=== PATIENT | male | born 1990 | race American Indian/Alaskan Native ===

== ENCOUNTER 2018-04-02 20:36 | Inpatient (IN) | payer SELFPAY ==
[2018-04-02] MEDS ORDERED: NACL 0.9% 1000 ML 1,000 ML IV ONE (21:57)
[2018-04-02 22:37] LABS: Hematocrit 40.4 % (35.5-45.6); Hemoglobin 13.8 gm/dl (11.8-15.2); Mean Corpuscular HGB Conc 34 % (32-34); Mean Corpuscular Hemoglobin 30 pg (28-32); Mean Corpuscular Volume 86 fl (84-94); Platelet Count 410 K/mm3 (140-440); Red Blood Count 4.68 M/mm3 (3.65-5.03); Red Cell Distribution Width 12.5 % (13.2-15.2)
[2018-04-02 22:54] LABS: Alanine Aminotransferase 9 units/L (7-56); Albumin 3.4 g/dL (3.9-5); BUN/Creatinine Ratio 4; Blood Urea Nitrogen 4 mg/dL (9-20); Calcium 9.1 mg/dL (8.4-10.2); Hemolysis Index 4
[2018-04-02 23:13] LABS: Basophils % (Manual) 0 % (0.0-1.8); Monocytes % (Manual) 0 % (0.0-7.3); RBC Morphology Normal; Total Cells Counted 100
[2018-04-02 23:14] LABS: Large Platelets 1+; Platelet Estimate Consistent w Auto
[2018-04-03] MEDS ORDERED: MOTRIN ONE ×2 (00:45→00:46)
[2018-04-03] MEDS ORDERED: ZOFRAN ODT PO ONE (00:46)
[2018-04-03] MEDS ORDERED: MOTRIN PO ONE (00:46)
[2018-04-03] MEDS ORDERED: SUBLIMAZE IV ONE (06:46)
[2018-04-03] MEDS ORDERED: NACL 0.9% 1000 ML 1,000 ML IV ONE (06:46)
[2018-04-03] MEDS ORDERED: ZOFRAN IV ONE (06:46)
--- NOTE | 2018-04-03 06:52 | Emergency Department Report ---
HPI - General Chief Complaint: Abdominal Pain Time Seen by Provider: 04/03/18 06:36 - HPI HPI: Room 24 The patient is a 28-year-old male presenting with a chief complaint of abdominal pain. The patient was discharged from hospital yesterday after admission for abdominal pain. The patient states he was discharged yesterday at approximately 14:00. The patient states he went home and ate a banana, one half couple fruit cocktail drink some water and took his antibiotic and then went to sleep. The patient states at approximately 19:30 he was awakened by diffuse sharp cramping abdominal pain that is constant in nature but waxes and wanes. Patient admits to nausea vomiting and subjective fever. The patient gives his pain score of 8/10 Location: Abdomen Duration: [See above] Quality: Sharp/cramping Severity: 8/10 Modifying factors: [see above] Context: [see above] Mode of transportation: [not driving] ED Past Medical Hx - Past Medical History Hx Asthma: Yes - Surgical History Additional Surgical History: Achilles Lt injury - Family History Family history: no significant - Social History Smoking Status: Never Smoker Substance Use Type: None (denies illicit drug use), Alcohol (occasional) - Medications Home Medications: Home Medications Medication Instructions Recorded Confirmed Last Taken Type Bacillus Coagulans [Probiotic] 1 each PO DAILY #30 tab.chew 04/02/18 Unknown Rx levoFLOXacin [Levaquin] 750 mg PO QDAY #10 tablet 04/02/18 Unknown Rx metroNIDAZOLE [Flagyl] 500 mg PO Q8HR #30 tablet 04/02/18 Unknown Rx ED Review of Systems ROS: Stated complaint: ABDOMINAL PAIN Other details as noted in HPI Constitutional: fever Eyes: denies: eye pain ENT: denies: throat pain Respiratory: no symptoms reported Cardiovascular: denies: chest pain Endocrine: no symptoms reported Gastrointestinal: abdominal pain, nausea, vomiting Genitourinary: denies: dysuria Musculoskeletal: denies: back pain Neurological: denies: headache Physical Exam - Physical Exam Vital Signs: Vital Signs 04/02/18 04/03/18 21:48 00:45 Temperature 99.1 F 101.2 F H Pulse Rate 90 102 H Respiratory 17 Rate Blood Pressure 156/69 Blood Pressure 134/60 [Left] O2 Sat by Pulse 100 99 Oximetry Physical Exam: GENERAL: The patient is well-developed well-nourished male lying on stretcher not appear to be in acute distress. [] HEENT: Normocephalic. Atraumatic. Extraocular motions are intact. Patient has moist mucous membranes. NECK: Supple. Trachea midline CHEST/LUNGS: Clear to auscultation. There is no respiratory distress noted. HEART/CARDIOVASCULAR: Regular. There is no tachycardia. There is no gallop rub or murmur. ABDOMEN: Abdomen is soft, but tender diffusely to palpation. Patient has normal bowel sounds. There is no abdominal distention. SKIN: There is no rash. There is no edema. There is no diaphoresis. NEURO: The patient is awake, alert, and oriented. The patient is cooperative. The patient has normal speech MUSCULOSKELETAL: There is no evidence of acute injury. ED Course Vital Signs 04/02/18 04/03/18 21:48 00:45 Temperature 99.1 F 101.2 F H Pulse Rate 90 102 H Respiratory 17 Rate Blood Pressure 156/69 Blood Pressure 134/60 [Left] O2 Sat by Pulse 100 99 Oximetry ED Medical Decision Making - Lab Data Result diagrams: 04/02/18 22:02 04/02/18 22:02 Laboratory Tests 04/02/18 04/02/18 22:02 22:02 WBC 11.4 H RBC 4.68 Hgb 13.8 Hct 40.4 MCV 86 MCH 30 MCHC 34 RDW 12.5 L Plt Count 410 Add Manual Diff Complete Total Counted 100 Seg Neutrophils % [employer] Head Seg Neuts % (Manual) 94.0 H Band Neutrophils % 0 Lymphocytes % (Manual) 5.0 L Reactive Lymphs % (Man) 0 Monocytes % (Manual) 0 Eosinophils % (Manual) 1.0 Basophils % (Manual) 0 Metamyelocytes % 0 Myelocytes % 0 Promyelocytes % 0 Blast Cells % 0 Nucleated RBC % Not Reportable Seg Neutrophils # Man 10.7 H Band Neutrophils # 0.0 Lymphocytes # (Manual) 0.6 L Abs React Lymphs (Man) 0.0 Monocytes # (Manual) 0.0 Eosinophils # (Manual) 0.1 Basophils # (Manual) 0.0 Metamyelocytes # 0.0 Myelocytes # 0.0 Promyelocytes # 0.0 Blast Cells # 0.0 WBC Morphology Not Reportable Hypersegmented Neuts Not Reportable Hyposegmented Neuts Not Reportable Hypogranular Neuts Not Reportable Smudge Cells Not Reportable Toxic Granulation Not Reportable Toxic Vacuolation Not Reportable Dohle Bodies Not Reportable Pelger-Huet Anomaly Not Reportable Wilver Rods Not Reportable Platelet Estimate Consistent w auto Clumped Platelets Not Reportable Plt Clumps, EDTA Not Reportable Large Platelets 1+ Giant Platelets Not Reportable Platelet Satelliting Not Reportable Plt Morphology Comment Not Reportable RBC Morphology Normal Dimorphic RBCs Not Reportable Polychromasia Not Reportable Hypochromasia Not Reportable Poikilocytosis Not Reportable Anisocytosis Not Reportable Microcytosis Not Reportable Macrocytosis Not Reportable Spherocytes Not Reportable Pappenheimer Bodies Not Reportable Sickle Cells Not Reportable Target Cells Not Reportable Tear Drop Cells Not Reportable Ovalocytes Not Reportable Helmet Cells Not Reportable [place] Bodies Not Reportable [place] Rings Not Reportable [place] Cells Not Reportable Bite Cells Not Reportable Crenated Cell Not Reportable Elliptocytes Not Reportable Acanthocytes (Spur) Not Reportable Rouleaux Not Reportable Hemoglobin C Crystals Not Reportable Schistocytes Not Reportable Malaria parasites Not Reportable Karri Bodies Not Reportable Hem Pathologist Commnt No Sodium 136 L Potassium 3.1 L Chloride 94.1 L Carbon Dioxide 23 Anion Gap 22 BUN 4 L Creatinine 0.9 Estimated GFR > 60 BUN/Creatinine Ratio 4 Glucose 124 H Calcium 9.1 Total Bilirubin 0.40 AST 14 ALT 9 Alkaline Phosphatase 59 Total Protein 7.2 Albumin 3.4 L Albumin/Globulin Ratio 0.9 - Differential Diagnosis appendicitis, peritonitis, chronic abdominal pain Critical care attestation.: If time is entered above; I have spent that time in minutes in the direct care of this critically ill patient, excluding procedure time. ED Disposition Clinical Impression: Acute abdominal pain, Leukocytosis Disposition: - OP ADMIT IP TO THIS HOSP Is pt being admited?: Yes Does the pt Need Aspirin: No Condition: Fair Referrals: PRIMARY CARE, [Primary Care Provider] - 3-5 Days Time of Disposition: 08:05 (hospitalist paged)
[2018-04-03] MEDS: KCL 10MEQ/100ML 10 MEQ/100 ML BAG IV SCH ×4 (07:52→11:49)
[2018-04-03] MEDS ORDERED: TYLENOL PO PRN (08:30)
[2018-04-03] MEDS ORDERED: DILAUDID IV PRN (08:30)
[2018-04-03] MEDS ORDERED: ZOFRAN IV PRN (08:30)
[2018-04-03] MEDS ORDERED: SODIUM CHLORIDE FLUSH SYRINGE 10 ML IV PRN (08:30)
--- NOTE | 2018-04-03 08:30 | History and Physical Report ---
History of Present Illness Date of examination: 04/03/18 Date of admission: 04/03/18 Chief complaint: abdominal pain History of present illness: The patient is a 28-year-old male who just discharged yesterday with abx for enteritis and outpt GI f/u presenting with a chief complaint of abdominal pain. The patient states he was discharged yesterday at approximately 14:00, he went home and ate a banana, one half couple fruit cocktail drink some water and took his antibiotic and then went to sleep. The patient states at approximately 19: 30 he was awakened by diffuse sharp cramping abdominal pain that is constant in nature but waxes and wanes. Patient also admits to nausea vomiting and subjective fever. CT abdomen/pelvis with oral contrast showed distended colon w/ o obstruction and diffuse enteritis. He was started on iv fluid, abx and admitted for further evaluation and management. Past History Past Medical History: No medical history Past Surgical History: Other (achilles Lt injury) Social history: smoking (marijuana), alcohol abuse (heavily once per week) Family history: no significant family history (denies family hist ROS: Constitutional: fever Eyes: denies: eye pain ENT: denies: throat pain Respiratory: no symptoms reported Cardiovascular: denies: chest pain Endocrine: no symptoms reported Gastrointestinal: + abdominal pain, nausea, vomiting Genitourinary: denies: dysuria Musculoskeletal: denies: back pain Neurological: denies: headache Medications and Allergies Allergies Allergy/AdvReac Type Severity Reaction Status Date / Time No Known Allergies Allergy Unverified 03/29/18 14:49 Home Medications Medication Instructions Recorded Confirmed Last Taken Type Bacillus Coagulans [Probiotic] 1 each PO DAILY #30 tab.chew 04/02/18 Unknown Rx levoFLOXacin [Levaquin] 750 mg PO QDAY #10 tablet 04/02/18 Unknown Rx metroNIDAZOLE [Flagyl] 500 mg PO Q8HR #30 tablet 04/02/18 Unknown Rx Active Meds: Active Medications Potassium Chloride (Kcl 10meq/100ml) 10 meq in 100 mls @ 100 mls/hr IV Q1H MC Stop: 04/03/18 10:59 Last Admin: 04/03/18 07:52 Dose: 100 mls/hr Exam - Physical Exam Narrative exam: GENERAL: The patient is well-developed well-nourished male lying on stretcher not appear to be in acute distress. [] HEENT: Normocephalic. Atraumatic. Extraocular motions are intact. Patient has moist mucous membranes. NECK: Supple. Trachea midline CHEST/LUNGS: Clear to auscultation. There is no respiratory distress noted. HEART/CARDIOVASCULAR: Regular. There is no tachycardia. There is no gallop rub or murmur. ABDOMEN: Abdomen is soft, but tender diffusely to palpation. Patient has normal bowel sounds. There is no abdominal distention. SKIN: There is no rash. There is no edema. There is no diaphoresis. NEURO: The patient is awake, alert, and oriented. The patient is cooperative. The patient has normal speech MUSCULOSKELETAL: There is no evidence of acute injury. - Constitutional Vitals: Temp Pulse Resp BP Pulse Ox 101.2 F H 102 H 17 134/60 99 04/03/18 00:45 04/03/18 00:45 04/03/18 00:45 04/03/18 00:45 04/03/18 00:45 Results - Labs CBC & Chem 7: 04/02/18 22:02 04/02/18 22:02 Labs: Abnormal lab results 04/02/18 04/02/18 Range/Units 22:02 22:02 WBC 11.4 H (4.5-11.0) K/mm3 RDW 12.5 L (13.2-15.2) % Seg Neuts % (Manual) 94.0 H (40.0-70.0) % Lymphocytes % (Manual) 5.0 L (13.4-35.0) % Seg Neutrophils # Man 10.7 H (1.8-7.7) K/mm3 Lymphocytes # (Manual) 0.6 L (1.2-5.4) K/mm3 Sodium 136 L (137-145) mmol/L Potassium 3.1 L (3.6-5.0) mmol/L Chloride 94.1 L (98-107) mmol/L BUN 4 L (9-20) mg/dL Glucose 124 H (75-100) mg/dL Albumin 3.4 L (3.9-5) g/dL Assessment and Plan Possible paralytic ileus Enteritis- ?IBD, C. def negative in prior admission Abdominal pain and Persistent nausea with vomiting, due to enteritis Sepsis, due to above Hypokalemia, due to GI loss - admit to medsurge, replete electrolytes, IV fluid, keep NPO - cont levaquin and flagyl IV - consulted GI and GS - DVT Px with SCD Radiological study: Although small bowel and colon are distended, oral contrast extends from stomach to rectum suggesting against obstruction. These findings may reflect paralytic ileus and/or enteritis. Given extensive mural thickening in the terminal ileum and cecum, findings are highly suspicious for inflammatory bowel disease Greater ascites than comparison with preponderance in the pelvis. Appendix contains oral contrast without mural thickening Slight prominence of right subareolar soft tissue may reflect mild gynecomastia Small bilateral pleural effusions with adjacent minimal lung base compressive atelectasis Nonspecific slight mural thickening in the sigmoid colon may be reactive from adjacent pelvic inflammatory change and fluid.
[2018-04-03] MEDS: SODIUM CHLORIDE FLUSH SYRINGE 10 ML IV SCH ×2 (10:43→22:43)
[2018-04-03] MEDS ORDERED: LEVAQUIN 750MG/150ML 750 MG/150 ML BAG IV ONE (10:53)
[2018-04-03] MEDS: LEVAQUIN 750MG/150ML 750 MG/150 ML BAG IV SCH (10:57)
--- NOTE | 2018-04-03 14:16 | Cat Scan Report ---
FINAL REPORT EXAM: CT ABDOMEN PELVIS WO CON HISTORY: abdominal pain TECHNIQUE: CT examination of the ABDOMEN without IV contrast CT examination of the PELVIS without IV contrast PRIORS: 03/29/2018 FINDINGS: Nonspecific slight prominence of right subareolar soft tissue may reflect mild gynecomastia. Small bilateral pleural effusions layer posteriorly, slightly larger on the right. Minimal adjacent bilateral lung base compressive atelectasis. Normal noncontrast appearance of the liver, gallbladder, adrenals, pancreas, and spleen. Normal caliber abdominal aorta and IVC. Normal-appearing kidneys and proximal ureters. Distal ureters are obscured by pelvic anatomy. Moderate ascites is slightly more prominent than comparison exam. It is noted in both pericolic gutters and pelvis. Trace is noted adjacent to the liver and spleen. There also suggestion of nonspecific mild anasarca in the abdominal wall and mesentery. No retroperitoneal adenopathy. No evidence of mesenteric mass. Normal-appearing stomach and duodenum. There is nonspecific new small bowel distention in the abdomen and pelvis. These contain air-fluid levels and contrast fluid levels. Findings may reflect paralytic ileus and/or enteritis or inflammatory bowel disease. Complete obstruction considered unlikely since oral contrast extends from the stomach to the rectum. Again noted is extensive mural thickening in the terminal ileum. Moderate to severe mural thickening in the cecum. Scattered slight mural thickening in small bowel. Normal-appearing appendix containing oral contrast. Extensive fat stranding is noted in the mesentery anterior to terminal ileum. Moderate to severe pelvic free fluid may be reactive. Normal-appearing urinary bladder, prostate, seminal vesicles, and rectum. No evidence of pneumoperitoneum. Nonspecific slight mural thickening in the sigmoid colon may be reactive from adjacent inflammatory change and pelvic fluid. Slight prominence of colon caliber in the ascending, transverse, and descending colon may reflect paralytic ileus. IMPRESSION: Although small bowel and colon are distended, oral contrast extends from stomach to rectum suggesting against obstruction. These findings may reflect paralytic ileus and/or enteritis. Given extensive mural thickening in the terminal ileum and cecum, findings are highly suspicious for inflammatory bowel disease Greater ascites than comparison with preponderance in the pelvis. Appendix contains oral contrast without mural thickening Slight prominence of right subareolar soft tissue may reflect mild gynecomastia Small bilateral pleural effusions with adjacent minimal lung base compressive atelectasis Nonspecific slight mural thickening in the sigmoid colon may be reactive from adjacent pelvic inflammatory change and fluid
[2018-04-03] MEDS: FLAGYL 500 MG/100 ML 500 MG/100 ML BAG IV SCH ×2 (17:00→22:43)
[2018-04-03 17:15] LABS: Alanine Aminotransferase 8 units/L (7-56)
[2018-04-03 17:24] LABS: Bilirubin,Direct < 0.2 mg/dL (0-0.2)
[2018-04-03 20:31] LABS: Bacteria,Urine 1+ /HPF (Negative); Bilirubin,Urine NEG (Negative); Blood,Urine NEG (Negative); Color,Urine Yellow (Yellow); Mucus,Urine FEW /HPF; Protein,Urine <15 mg/dL mg/dL (Negative); Urobilinogen,Urine < 2.0 mg/dL (<2.0)
[2018-04-03] MEDS: D5NS 1,000 ML IV SCH (22:43)
[2018-04-04] MEDS: MORPHINE IV PRN ×2 (00:43→21:59)
[2018-04-04] MEDS: FLAGYL 500 MG/100 ML 500 MG/100 ML BAG IV SCH ×3 (06:48→21:57)
[2018-04-04 06:59] LABS: Basophils % (Auto) 0.1 % (0.0-1.8); Eosinophils % (Auto) 0.1 % (0.0-4.3); Hematocrit 36.8 % (35.5-45.6); Hemoglobin 12.6 gm/dl (11.8-15.2); Lymphocytes # (Auto) 0.5 K/mm3 (1.2-5.4); Lymphocytes % (Auto) 5.7 % (13.4-35.0); Mean Corpuscular HGB Conc 34 % (32-34); Mean Corpuscular Hemoglobin 30 pg (28-32); Mean Corpuscular Volume 86 fl (84-94); Monocytes # (Auto) 1.2 K/mm3 (0.0-0.8); Monocytes % (Auto) 12.7 % (0.0-7.3); Platelet Count 402 K/mm3 (140-440); Red Blood Count 4.27 M/mm3 (3.65-5.03); Red Cell Distribution Width 12.7 % (13.2-15.2)
[2018-04-04 07:11] LABS: Alanine Aminotransferase 9 units/L (7-56); Albumin 3.1 g/dL (3.9-5); BUN/Creatinine Ratio 5; Blood Urea Nitrogen 4 mg/dL (9-20); Hemolysis Index 14
--- NOTE | 2018-04-04 09:26 | Progress Note ---
Assessment and Plan Assessment and plan: The patient is a 28-year-old male who just discharged yesterday with abx for enteritis and outpt GI f/u presenting with a chief complaint of abdominal pain. The patient states he was discharged yesterday at approximately 14:00, he went home and ate a banana, one half couple fruit cocktail drink some water and took his antibiotic and then went to sleep. The patient states at approximately 19: 30 he was awakened by diffuse sharp cramping abdominal pain that is constant in nature but waxes and wanes. Patient also admits to nausea vomiting and subjective fever. CT abdomen/pelvis with oral contrast showed distended colon w/ o obstruction and diffuse enteritis. He was started on iv fluid, abx and admitted for further evaluation and management. Per My discharge summary during last visit "On admission the patient was noted to have possible acute appendicitis versus IBS with consultation to surgery and GI. Patient also was noted to have low-grade fever. Started on empiric antibiotic coverage. Surgery will have the patient felt this was IBS versus IBD. GI, and subsequently infectious disease patient will continued on empiric antibiotic and it appears this is more of an infectious bowel condition which is improving with antibiotics and will complete antibiotics outpatient. We will also recommended to follow up with the GI outpatient for colonoscopy for definitive diagnosis" Radiological study: Although small bowel and colon are distended, oral contrast extends from stomach to rectum suggesting against obstruction. These findings may reflect paralytic ileus and/or enteritis. Given extensive mural thickening in the terminal ileum and cecum, findings are highly suspicious for inflammatory bowel disease Greater ascites than comparison with preponderance in the pelvis. Appendix contains oral contrast without mural thickening Slight prominence of right subareolar soft tissue may reflect mild gynecomastia Small bilateral pleural effusions with adjacent minimal lung base compressive atelectasis Nonspecific slight mural thickening in the sigmoid colon may be reactive from adjacent pelvic inflammatory change and fluid. Possible paralytic ileus Enteritis- ?IBD, C. def negative in prior admission Peritoneal Irritation-Chronic Chronic Diarrhea with intermittent Nausea and vomiting due to enteritis Sepsis, due to above Hypokalemia, due to GI loss PLAN - Continue supportive care replete electrolytes, IV fluid, keep NPO except ice - cont levaquin and flagyl IV -ID consult - consulted GI and GS -Replace electrolytes - DVT Px with SCD -Plan of care discussed with the patient and family in detail History Interval history: Patient seen and examined this morning reports mild improvement in symptoms. Still with abdominal pain. Rates IT 4 over 10 in intensity. No associated nausea vomiting at this time. Patient reports bowel movements today. Hospitalist Physical - Physical exam Narrative exam: VITAL SIGNS: Reviewed. GENERAL: The patient appeared well nourished and normally developed. Vital signs as documented. HEAD: No signs of head trauma. EYES: Pupils are equal. Extraocular motions intact. EARS: Hearing grossly intact. MOUTH: Oropharynx is normal. NECK: No adenopathy, no JVD. CHEST: Chest with clear breath sounds bilaterally. No wheezes, rales, or rhonchi. CARDIAC: Regular rate and rhythm. S1 and S2, without murmurs, gallops, or rubs. VASCULAR: No Edema. Peripheral pulses normal and equal in all extremities. ABDOMEN: Soft, TTP, No sign of distention. No rebound or guarding, and no masses palpated. Bowel Sounds normal. MUSCULOSKELETAL: Good range of motion of all major joints. Extremities without clubbing, cyanosis or edema. NEUROLOGIC EXAM: Alert and oriented x 3. No focal sensory or strength deficits. Speech normal. Follows commands. PSYCHIATRIC: Mood normal. SKIN: No rash or lesions. - Constitutional Vitals: Temp Pulse Resp BP Pulse Ox 99.3 F 88 18 117/73 98 04/04/18 06:49 04/04/18 06:49 04/04/18 06:49 04/04/18 06:49 04/04/18 06:49 Results - Labs CBC & Chem 7: 04/04/18 05:50 04/04/18 05:50 Labs: Laboratory Last Values WBC 9.7 K/mm3 (4.5-11.0) 04/04/18 05:50 RBC 4.27 M/mm3 (3.65-5.03) 04/04/18 05:50 Hgb 12.6 gm/dl (11.8-15.2) 04/04/18 05:50 Hct 36.8 % (35.5-45.6) 04/04/18 05:50 MCV 86 fl (84-94) 04/04/18 05:50 MCH 30 pg (28-32) 04/04/18 05:50 MCHC 34 % (32-34) 04/04/18 05:50 RDW 12.7 % (13.2-15.2) L 04/04/18 05:50 Plt Count 402 K/mm3 (140-440) 04/04/18 05:50 Lymph % (Auto) 5.7 % (13.4-35.0) L 04/04/18 05:50 [place] % (Auto) 12.7 % (0.0-7.3) H 04/04/18 05:50 Eos % (Auto) 0.1 % (0.0-4.3) 04/04/18 05:50 Baso % (Auto) 0.1 % (0.0-1.8) 04/04/18 05:50 Lymph # 0.5 K/mm3 (1.2-5.4) L 04/04/18 05:50 [place] # 1.2 K/mm3 (0.0-0.8) H 04/04/18 05:50 Eos # 0.0 K/mm3 (0.0-0.4) 04/04/18 05:50 Baso # 0.0 K/mm3 (0.0-0.1) 04/04/18 05:50 Add Manual Diff Complete 04/02/18 22:02 Total Counted 100 04/02/18 22:02 Seg Neutrophils % 81.4 % (40.0-70.0) H 04/04/18 05:50 Seg Neuts % (Manual) 94.0 % (40.0-70.0) H 04/02/18 22:02 Band Neutrophils % 0 % 04/02/18 22:02 Lymphocytes % (Manual) 5.0 % (13.4-35.0) L 04/02/18 22:02 Reactive Lymphs % (Man) 0 % 04/02/18 22:02 Monocytes % (Manual) 0 % (0.0-7.3) 04/02/18 22:02 Eosinophils % (Manual) 1.0 % (0.0-4.3) 04/02/18 22:02 Basophils % (Manual) 0 % (0.0-1.8) 04/02/18 22:02 Metamyelocytes % 0 % 04/02/18 22:02 Myelocytes % 0 % 04/02/18 22:02 Promyelocytes % 0 % 04/02/18 22:02 Blast Cells % 0 % 04/02/18 22:02 Nucleated RBC % Not Reportable 04/02/18 22:02 Seg Neutrophils # 7.9 K/mm3 (1.8-7.7) H 04/04/18 05:50 Seg Neutrophils # Man 10.7 K/mm3 (1.8-7.7) H 04/02/18 22:02 Band Neutrophils # 0.0 K/mm3 04/02/18 22:02 Lymphocytes # (Manual) 0.6 K/mm3 (1.2-5.4) L 04/02/18 22:02 Abs React Lymphs (Man) 0.0 K/mm3 04/02/18 22:02 Monocytes # (Manual) 0.0 K/mm3 (0.0-0.8) 04/02/18 22:02 Eosinophils # (Manual) 0.1 K/mm3 (0.0-0.4) 04/02/18 22:02 Basophils # (Manual) 0.0 K/mm3 (0.0-0.1) 04/02/18 22:02 Metamyelocytes # 0.0 K/mm3 04/02/18 22:02 Myelocytes # 0.0 K/mm3 04/02/18 22:02 Promyelocytes # 0.0 K/mm3 04/02/18 22:02 Blast Cells # 0.0 K/mm3 04/02/18 22:02 WBC Morphology Not Reportable 04/02/18 22:02 Hypersegmented Neuts Not Reportable 04/02/18 22:02 Hyposegmented Neuts Not Reportable 04/02/18 22:02 Hypogranular Neuts Not Reportable 04/02/18 22:02 Smudge Cells Not Reportable 04/02/18 22:02 Toxic Granulation Not Reportable 04/02/18 22:02 Toxic Vacuolation Not Reportable 04/02/18 22:02 Dohle Bodies Not Reportable 04/02/18 22:02 Pelger-Huet Anomaly Not Reportable 04/02/18 22:02 Wilver Rods Not Reportable 04/02/18 22:02 Platelet Estimate Consistent w auto 04/02/18 22:02 Clumped Platelets Not Reportable 04/02/18 22:02 Plt Clumps, EDTA Not Reportable 04/02/18 22:02 Large Platelets 1+ 04/02/18 22:02 Giant Platelets Not Reportable 04/02/18 22:02 Platelet Satelliting Not Reportable 04/02/18 22:02 Plt Morphology Comment Not Reportable 04/02/18 22:02 RBC Morphology Normal 04/02/18 22:02 Dimorphic RBCs Not Reportable 04/02/18 22:02 Polychromasia Not Reportable 04/02/18 22:02 Hypochromasia Not Reportable 04/02/18 22:02 Poikilocytosis Not Reportable 04/02/18 22:02 Anisocytosis Not Reportable 04/02/18 22:02 Microcytosis Not Reportable 04/02/18 22:02 Macrocytosis Not Reportable 04/02/18 22:02 Spherocytes Not Reportable 04/02/18 22:02 Pappenheimer Bodies Not Reportable 04/02/18 22:02 Sickle Cells Not Reportable 04/02/18 22:02 Target Cells Not Reportable 04/02/18 22:02 Tear Drop Cells Not Reportable 04/02/18 22:02 Ovalocytes Not Reportable 04/02/18 22:02 Helmet Cells Not Reportable 04/02/18 22:02 Garcia-[place] Bodies Not Reportable 04/02/18 22:02 [place] Rings Not Reportable 04/02/18 22:02 [place] Cells Not Reportable 04/02/18 22:02 Bite Cells Not Reportable 04/02/18 22:02 Crenated Cell Not Reportable 04/02/18 22:02 Elliptocytes Not Reportable 04/02/18 22:02 Acanthocytes (Spur) Not Reportable 04/02/18 22:02 Rouleaux Not Reportable 04/02/18 22:02 Hemoglobin C Crystals Not Reportable 04/02/18 22:02 Schistocytes Not Reportable 04/02/18 22:02 Malaria parasites Not Reportable 04/02/18 22:02 Karri Bodies Not Reportable 04/02/18 22:02 Hem Pathologist Commnt No 04/02/18 22:02 Sodium 139 mmol/L (137-145) 04/04/18 05:50 Potassium 3.3 mmol/L (3.6-5.0) L 04/04/18 05:50 Chloride 99.6 mmol/L (98-107) 04/04/18 05:50 Carbon Dioxide 24 mmol/L (22-30) 04/04/18 05:50 Anion Gap 19 mmol/L 04/04/18 05:50 BUN 4 mg/dL (9-20) L 04/04/18 05:50 Creatinine 0.8 mg/dL (0.8-1.5) 04/04/18 05:50 Estimated GFR > 60 ml/min 04/04/18 05:50 BUN/Creatinine Ratio 5 % 04/04/18 05:50 Glucose 102 mg/dL (75-100) H 04/04/18 05:50 Lactic Acid 1.90 mmol/L (0.7-2.0) 04/03/18 10:47 Calcium 9.0 mg/dL (8.4-10.2) 04/04/18 05:50 Total Bilirubin 0.30 mg/dL (0.1-1.2) 04/04/18 05:50 Direct Bilirubin < 0.2 mg/dL (0-0.2) 04/03/18 16:37 Indirect Bilirubin 0.2 mg/dL 04/03/18 16:37 AST 11 units/L (5-40) 04/04/18 05:50 ALT 9 units/L (7-56) 04/04/18 05:50 Alkaline Phosphatase 51 units/L (35-129) 04/04/18 05:50 Total Protein 6.8 g/dL (6.3-8.2) 04/04/18 05:50 Albumin 3.1 g/dL (3.9-5) L 04/04/18 05:50 Albumin/Globulin Ratio 0.8 % 04/04/18 05:50 Urine Color Yellow (Yellow) 04/03/18 19:50 Urine Turbidity Clear (Clear) 04/03/18 19:50 Urine pH 7.0 (5.0-7.0) 04/03/18 19:50 Ur Specific [place] 1.012 (1.003-1.030) 04/03/18 19:50 Urine Protein <15 mg/dl mg/dL (Negative) 04/03/18 19:50 Urine Glucose (UA) Neg mg/dL (Negative) 04/03/18 19:50 Urine Ketones Tr mg/dL (Negative) 04/03/18 19:50 Urine Blood Neg (Negative) 04/03/18 19:50 Urine Nitrite Neg (Negative) 04/03/18 19:50 Urine Bilirubin Neg (Negative) 04/03/18 19:50 Urine Urobilinogen < 2.0 mg/dL (<2.0) 04/03/18 19:50 Ur Leukocyte Esterase Neg (Negative) 04/03/18 19:50 Urine WBC (Auto) 2.0 /HPF (0.0-6.0) 04/03/18 19:50 Urine RBC (Auto) 5.0 /HPF (0.0-6.0) 04/03/18 19:50 Urine Bacteria (Auto) 1+ /HPF (Negative) 04/03/18 19:50 Urine Mucus Few /HPF 04/03/18 19:50 - Imaging and Cardiology CT scan - abdomen: image reviewed (ileus)
[2018-04-04] MEDS: LEVAQUIN 750MG/150ML 750 MG/150 ML BAG IV SCH (10:03)
[2018-04-04] MEDS: SODIUM CHLORIDE FLUSH SYRINGE 10 ML IV SCH ×2 (10:04→22:43)
[2018-04-04] MEDS: KCL 10MEQ/100ML 10 MEQ/100 ML BAG IV SCH ×2 (12:49→14:01)
[2018-04-04] MEDS: D5NS 1,000 ML IV SCH ×2 (14:02→21:59)
--- NOTE | 2018-04-04 15:07 | Gastroenterology Consultation ---
History of Present Illness - Reason for Consult Consult date: 04/04/18 Abdominal pain, abnormal CT scan Requesting physician: YARITZA CARDONA - History of Present Illness The patient is a 28-year-old man who reports progressive abdominal pain over the course of approximately 3 months. Consultation was requested after readmission for abdominal pain and distention. He is more prominent in the right lower quadrant and CT scan last admission reveals thickening of the terminal ileum and ascending colon as well as mild dilation of the small bowel and a small amount of pelvic ascites. Surgery was consulted who felt that this was not acute appendicitis. The picture was more likely consistent with inflammatory bowel disease. After being home only 3 days pain progressively worsened and he felt more distended prompting his admission. There is no family history of inflammatory bowel disease or gastrointestinal neoplasia. He denies any weight loss. He has had mild diarrhea intermittently but no blood in the stool. C. difficile toxin on the last admission was negative. The plan was for outpatient colonoscopy originally. Past History Past Medical History: No medical history Past Surgical History: No surgical history Social history: denies: smoking, alcohol abuse Family history: no significant family history Medications and Allergies Allergies Allergy/AdvReac Type Severity Reaction Status Date / Time No Known Allergies Allergy Unverified 03/29/18 14:49 Home Medications Medication Instructions Recorded Confirmed Last Taken Type Bacillus Coagulans [Probiotic] 1 each PO DAILY #30 tab.chew 04/02/18 Unknown Rx levoFLOXacin [Levaquin] 750 mg PO QDAY #10 tablet 04/02/18 Unknown Rx metroNIDAZOLE [Flagyl] 500 mg PO Q8HR #30 tablet 04/02/18 Unknown Rx Active Meds: Active Medications Acetaminophen (Tylenol) 650 mg PO Q4H PRN PRN Reason: Pain MILD(1-3)/Fever >100.5/HUDSON Hydromorphone HCl (Dilaudid) 0.25 mg IV Q3H PRN PRN Reason: Pain, Moderate (4-6) Dextrose/Sodium Chloride (D5ns) 1,000 mls @ 100 mls/hr IV DIRECT [facility] Last Admin: 04/04/18 14:02 Dose: 100 mls/hr Levofloxacin/Dextrose (Levaquin 750mg/150ml) 750 mg in 150 mls @ 100 mls/hr IV Q24HR [facility]; Protocol Last Admin: 04/04/18 10:03 Dose: 100 mls/hr Metronidazole (Flagyl 500 Mg/100 Ml) 500 mg in 100 mls @ 100 mls/hr IV Q8HR [facility] ; Protocol Last Admin: 04/04/18 14:03 Dose: 100 mls/hr Morphine Sulfate (Morphine) 2 mg IV Q4H PRN PRN Reason: Pain, Moderate (4-6) Last Admin: 04/04/18 00:43 Dose: 2 mg Ondansetron HCl (Zofran) 4 mg IV Q8H PRN PRN Reason: Nausea And Vomiting Sodium Chloride (Sodium Chloride Flush Syringe 10 Ml) 10 ml IV BID [facility] Last Admin: 04/04/18 10:04 Dose: 10 ml Sodium Chloride (Sodium Chloride Flush Syringe 10 Ml) 10 ml IV PRN PRN PRN Reason: LINE FLUSH Review of Systems - Review of Systems Constitutional: weight loss, weight gain Eyes: no change in vision, no pain Ears, Nose, Throat: no decreased hearing, no epistaxis, no painful swallowing Breasts: deferred Cardiovascular: no chest pain, no edema, no rapid/irregular heart beat, no shortness of breath Respiratory: no cough, no shortness of breath, no wheezing Gastrointestinal: abdominal pain, diarrhea, no nausea, no vomiting, no constipation, no hematemesis, no BRBPR Rectal: no pain Male Genitourinary: deferred Musculoskeletal: no gait dysfunction, no joint pain Integumentary: no rash, no pruritis, no jaundice Neurological: no head injury, no paralysis, no weakness, no parasthesias Psychiatric: no anxiety, no memory loss, no change in sleep habits Endocrine: no cold intolerance Hematologic/Lymphatic: no easy bruising, no easy bleeding Allergic/Immunologic: no wheezing Exam - Constitutional Vital Signs: Temp Pulse Resp BP Pulse Ox 98.7 F 81 16 113/63 98 04/04/18 11:37 04/04/18 11:37 04/04/18 11:37 04/04/18 11:37 04/04/18 11:37 General appearance: mild distress, well-nourished - EENT Eyes: PERRL ENT: hearing intact, clear oral mucosa, dentition normal - Neck Neck: supple, normal ROM, no masses or JVD - Respiratory Respiratory effort: normal Respiratory: bilateral: CTA - Breasts Breasts: deferred - Cardiovascular Rhythm: regular Heart Sounds: Present: S1 & S2. Absent: gallop, rub Extremities: pulses intact, No edema, normal color, Full ROM - Gastrointestinal General gastrointestinal: Present: soft, tender (mild diffuse tenderness. No rebound or guarding.), distended (mild distention and tympany.), normal bowel sounds. Absent: hepatomegaly, splenomegaly, mass, hernia Rectal Exam: deferred - Genitourinary Male Genitourinary: deferred - Integumentary Integumentary: Present: clear, warm, dry - Musculoskeletal Musculoskeletal: normal - Neurologic Neurological: alert and oriented x3 - Psychiatric Psychiatric: appropriate mood/affect, intact judgment & insight, memory intact - Labs CBC & Chem 7: 04/04/18 05:50 04/04/18 05:50 Lab Results: Laboratory Results - last 24 hr 04/03/18 04/03/18 04/04/18 16:37 19:50 05:50 WBC 9.7 RBC 4.27 Hgb 12.6 Hct 36.8 MCV 86 MCH 30 MCHC 34 RDW 12.7 L Plt Count 402 Lymph % (Auto) 5.7 L [place] % (Auto) 12.7 H Eos % (Auto) 0.1 Baso % (Auto) 0.1 Lymph # 0.5 L [place] # 1.2 H Eos # 0.0 Baso # 0.0 Seg Neutrophils % 81.4 H Seg Neutrophils # 7.9 H Sodium Potassium Chloride Carbon Dioxide Anion Gap BUN Creatinine Estimated GFR BUN/Creatinine Ratio Glucose Calcium Total Bilirubin 0.40 Direct Bilirubin < 0.2 Indirect Bilirubin 0.2 AST 10 ALT 8 Alkaline Phosphatase 51 Total Protein 6.5 Albumin 3.0 L Albumin/Globulin Ratio 0.9 Urine Color Yellow Urine Turbidity Clear Urine pH 7.0 Ur Specific [place] 1.012 Urine Protein <15 mg/dl Urine Glucose (UA) Neg Urine Ketones Tr Urine Blood Neg Urine Nitrite Neg Urine Bilirubin Neg Urine Urobilinogen < 2.0 Ur Leukocyte Esterase Neg Urine WBC (Auto) 2.0 Urine RBC (Auto) 5.0 Urine Bacteria (Auto) 1+ Urine Mucus Few 04/04/18 05:50 WBC RBC Hgb Hct MCV MCH MCHC RDW Plt Count Lymph % (Auto) [place] % (Auto) Eos % (Auto) Baso % (Auto) Lymph # [place] # Eos # Baso # Seg Neutrophils % Seg Neutrophils # Sodium 139 Potassium 3.3 L Chloride 99.6 Carbon Dioxide 24 Anion Gap 19 BUN 4 L Creatinine 0.8 Estimated GFR > 60 BUN/Creatinine Ratio 5 Glucose 102 H Calcium 9.0 Total Bilirubin 0.30 Direct Bilirubin Indirect Bilirubin AST 11 ALT 9 Alkaline Phosphatase 51 Total Protein 6.8 Albumin 3.1 L Albumin/Globulin Ratio 0.8 Urine Color Urine Turbidity Urine pH Ur Specific [place] Urine Protein Urine Glucose (UA) Urine Ketones Urine Blood Urine Nitrite Urine Bilirubin Urine Urobilinogen Ur Leukocyte Esterase Urine WBC (Auto) Urine RBC (Auto) Urine Bacteria (Auto) Urine Mucus - Imaging CT Scan: report reviewed, image reviewed Assessment and Plan - Patient Problems (1) Acute abdominal pain Current Visit: Yes Status: Acute Plan to address problem: The clinical course, CT scan findings and age are suggestive that we are dealing with Crohn's disease. The patient needs definitive diagnostic studies including a small bowel series and colonoscopy. The CT scan reveals thickening of the terminal ileum and ascending colon and some dilation of his small bowel loops. He is not obstructive however as the oral contrast agent for the CT scan reaches the rectum fairly promptly. Follow-up abdominal films will be obtained and if the patient appears to not progress towards obstruction, will plan for possible colonoscopy if he can tolerate the prep and a small bowel series. I will obtain a QuantiFERON goal test and hepatitis studies because the patient will likely need immunosuppressive therapy if this is inflammatory bowel disease. He may need empiric steroids this admission pending Dx if these studies are negative. Thank you for asking me to see this patient in consultation.
[2018-04-05 06:39] LABS: Hematocrit 35.6 % (35.5-45.6); Hemoglobin 11.7 gm/dl (11.8-15.2); Mean Corpuscular HGB Conc 33 % (32-34); Mean Corpuscular Hemoglobin 29 pg (28-32); Mean Corpuscular Volume 88 fl (84-94); Platelet Count 417 K/mm3 (140-440); Red Blood Count 4.03 M/mm3 (3.65-5.03); Red Cell Distribution Width 13.1 % (13.2-15.2)
[2018-04-05] MEDS: FLAGYL 500 MG/100 ML 500 MG/100 ML BAG IV SCH ×3 (06:40→21:52)
[2018-04-05] MEDS ORDERED: MILK OF MAGNESIA PO ONE (06:42)
[2018-04-05 07:04] LABS: Alanine Aminotransferase 8 units/L (7-56); Albumin 2.8 g/dL (3.9-5); BUN/Creatinine Ratio 4; Blood Urea Nitrogen 3 mg/dL (9-20); Hemolysis Index 2
--- NOTE | 2018-04-05 08:23 | XRay Report ---
ABDOMEN, 2 views: History: Abdominal distention. Recent CTs of the abdomen and pelvis were reviewed. Small bowel dilatation in the central abdomen has decreased since the most recent CT 2 days ago. Small bowel dilatation is borderline on today's exam. There are scattered small air-fluid levels but no evidence for free air. Normal gas in the colon. IMPRESSION: Mild improvement in small bowel dilatation since the CT abdomen and pelvis performed 2 days ago.
[2018-04-05] MEDS: LEVAQUIN 750MG/150ML 750 MG/150 ML BAG IV SCH (10:01)
[2018-04-05] MEDS: SODIUM CHLORIDE FLUSH SYRINGE 10 ML IV SCH ×2 (10:01→21:57)
--- NOTE | 2018-04-05 10:31 | Gastroenterology Progress Note ---
<KENNETH CORTEZDiana - Last Filed: 04/05/18 10:37> Assessment and Plan 1.acute abdominal pain -afebrile -WBC WNL -hepatitis panel negative -Quantiferon gold results pending -CT scan findings suggestive of Crohn's disease (no evidence of obstruction) -KUB this am shows mild improvement -will schedule for colonoscopy in am for further evaluation -will likely need immunosuppressive therapy if this is IBD and may need empirc steroid this admission pending Dx -continue supportive care -will follow Subjective Date of service: 04/05/18 Principal diagnosis: IBD Interval history: Patient w/o acute distress. Reports abd pain is improving. Denies N/V. Tolerating clears. Objective - Constitutional Vitals: Temp Pulse Resp BP Pulse Ox 98.5 F 73 20 122/74 97 04/05/18 05:51 04/05/18 05:51 04/05/18 05:51 04/05/18 05:51 04/05/18 05:51 General appearance: no acute distress - Respiratory Respiratory: bilateral: CTA - Cardiovascular Rhythm: regular Heart Sounds: Present: S1 & S2 - Gastrointestinal General gastrointestinal: Present: soft, tender (mild diffuse tenderness. No rebound or guarding), non-distended, normal bowel sounds - Neurologic Neurological: alert and oriented x3 - Labs CBC & Chem 7: 04/05/18 06:09 04/05/18 06:09 Labs: Laboratory Results - last 24 hr 04/04/18 04/04/18 04/05/18 15:31 15:31 06:09 WBC 4.6 RBC 4.03 Hgb 11.7 L Hct 35.6 MCV 88 MCH 29 MCHC 33 RDW 13.1 L Plt Count 417 Sodium Potassium Chloride Carbon Dioxide Anion Gap BUN Creatinine Estimated GFR BUN/Creatinine Ratio Glucose Calcium Total Bilirubin AST ALT Alkaline Phosphatase C-Reactive Protein Total Protein Albumin Albumin/Globulin Ratio Hep Bs Antigen Non-reactive Hepatitis C Antibody Non-reactive 04/05/18 04/05/18 06:09 08:09 WBC RBC Hgb Hct MCV MCH MCHC RDW Plt Count Sodium 140 Potassium 3.1 L Chloride 100.4 Carbon Dioxide 25 Anion Gap 18 BUN 3 L Creatinine 0.7 L Estimated GFR > 60 BUN/Creatinine Ratio 4 Glucose 90 Calcium 9.0 Total Bilirubin 0.30 AST 9 ALT 8 Alkaline Phosphatase 47 C-Reactive Protein 23.00 H Total Protein 6.6 Albumin 2.8 L Albumin/Globulin Ratio 0.7 Hep Bs Antigen Hepatitis C Antibody <LEX CHÁVEZ - Last Filed: 04/05/18 11:48> Assessment and Plan The patient was seen and personally examined. Crohn's is suspected. Hopefully he can be successfully prepped for colonoscopy tomorrow with a low volume prep. He does not appear to be obstructed. Lex Chávez MD - Patient Problems (1) Acute abdominal pain Current Visit: Yes Status: Acute Objective - Constitutional Vitals: Temp Pulse Resp BP Pulse Ox 98.5 F 73 20 122/74 97 04/05/18 05:51 04/05/18 05:51 04/05/18 05:51 04/05/18 05:51 04/05/18 05:51 - Labs CBC & Chem 7: 04/05/18 06:09 04/05/18 06:09 Labs: Laboratory Results - last 24 hr 04/04/18 04/04/18 04/05/18 15:31 15:31 06:09 WBC 4.6 RBC 4.03 Hgb 11.7 L Hct 35.6 MCV 88 MCH 29 MCHC 33 RDW 13.1 L Plt Count 417 Sodium Potassium Chloride Carbon Dioxide Anion Gap BUN Creatinine Estimated GFR BUN/Creatinine Ratio Glucose Calcium Total Bilirubin AST ALT Alkaline Phosphatase C-Reactive Protein Total Protein Albumin Albumin/Globulin Ratio Hep Bs Antigen Non-reactive Hepatitis C Antibody Non-reactive 04/05/18 04/05/18 06:09 08:09 WBC RBC Hgb Hct MCV MCH MCHC RDW Plt Count Sodium 140 Potassium 3.1 L Chloride 100.4 Carbon Dioxide 25 Anion Gap 18 BUN 3 L Creatinine 0.7 L Estimated GFR > 60 BUN/Creatinine Ratio 4 Glucose 90 Calcium 9.0 Total Bilirubin 0.30 AST 9 ALT 8 Alkaline Phosphatase 47 C-Reactive Protein 23.00 H Total Protein 6.6 Albumin 2.8 L Albumin/Globulin Ratio 0.7 Hep Bs Antigen Hepatitis C Antibody
[2018-04-05] MEDS ORDERED: CITRATE OF MAGNESIA PO ONE ×2 (11:00→17:00)
[2018-04-05] MEDS ORDERED: DULCOLAX PR ONE ×2 (11:00→17:00)
--- NOTE | 2018-04-05 14:42 | Progress Note ---
Assessment and Plan Assessment and plan: The patient is a 28-year-old male who just discharged yesterday with abx for enteritis and outpt GI f/u presenting with a chief complaint of abdominal pain. The patient states he was discharged yesterday at approximately 14:00, he went home and ate a banana, one half couple fruit cocktail drink some water and took his antibiotic and then went to sleep. The patient states at approximately 19: 30 he was awakened by diffuse sharp cramping abdominal pain that is constant in nature but waxes and wanes. Patient also admits to nausea vomiting and subjective fever. CT abdomen/pelvis with oral contrast showed distended colon w/ o obstruction and diffuse enteritis. He was started on iv fluid, abx and admitted for further evaluation and management. Per My discharge summary during last visit "On admission the patient was noted to have possible acute appendicitis versus IBS with consultation to surgery and GI. Patient also was noted to have low-grade fever. Started on empiric antibiotic coverage. Surgery will have the patient felt this was IBS versus IBD. GI, and subsequently infectious disease patient will continued on empiric antibiotic and it appears this is more of an infectious bowel condition which is improving with antibiotics and will complete antibiotics outpatient. We will also recommended to follow up with the GI outpatient for colonoscopy for definitive diagnosis" Radiological study: Although small bowel and colon are distended, oral contrast extends from stomach to rectum suggesting against obstruction. These findings may reflect paralytic ileus and/or enteritis. Given extensive mural thickening in the terminal ileum and cecum, findings are highly suspicious for inflammatory bowel disease Greater ascites than comparison with preponderance in the pelvis. Appendix contains oral contrast without mural thickening Slight prominence of right subareolar soft tissue may reflect mild gynecomastia Small bilateral pleural effusions with adjacent minimal lung base compressive atelectasis Nonspecific slight mural thickening in the sigmoid colon may be reactive from adjacent pelvic inflammatory change and fluid. Possible paralytic ileus Enteritis- ?IBD, C. def negative in prior admission POSSIBLE CROHNS Peritoneal Irritation-Chronic Chronic Diarrhea with intermittent Nausea and vomiting due to enteritis Sepsis, due to above Hypokalemia, due to GI loss PLAN - Continue supportive care replete electrolytes, IV fluid, keep NPO except ice - Cont levaquin and flagyl IV -ID consult - GI and Surgical input noted -Plan for colonocscopY - quantiferon and HEpatitis panel pending -Replace electrolytes - DVT Px with SCD -Plan of care discussed with the patient History Interval history: Patient seen and examined this morning reports mild improvement in symptoms. No new complaints. Hospitalist Physical - Physical exam Narrative exam: VITAL SIGNS: Reviewed. GENERAL: The patient appeared well nourished and normally developed. Resting comfortably. Vital signs as documented. HEAD: No signs of head trauma. EYES: Pupils are equal. Extraocular motions intact. EARS: Hearing grossly intact. MOUTH: Oropharynx is normal. NECK: No adenopathy, no JVD. CHEST: Chest with clear breath sounds bilaterally. No wheezes, rales, or rhonchi. CARDIAC: Regular rate and rhythm. S1 and S2, without murmurs, gallops, or rubs. VASCULAR: No Edema. Peripheral pulses normal and equal in all extremities. ABDOMEN: Soft, TTP, No sign of distention. No rebound or guarding, and no masses palpated. Bowel Sounds normal. MUSCULOSKELETAL: Good range of motion of all major joints. Extremities without clubbing, cyanosis or edema. NEUROLOGIC EXAM: Alert and oriented x 3. No focal sensory or strength deficits. Speech normal. Follows commands. PSYCHIATRIC: Mood normal. SKIN: No rash or lesions. - Constitutional Vitals: Temp Pulse Resp BP Pulse Ox 98.5 F 74 16 115/61 99 04/05/18 11:40 04/05/18 11:40 04/05/18 11:40 04/05/18 11:40 04/05/18 11:40 Results - Labs CBC & Chem 7: 04/05/18 06:09 04/05/18 06:09 Labs: Laboratory Last Values WBC 4.6 K/mm3 (4.5-11.0) 04/05/18 06:09 RBC 4.03 M/mm3 (3.65-5.03) 04/05/18 06:09 Hgb 11.7 gm/dl (11.8-15.2) L 04/05/18 06:09 Hct 35.6 % (35.5-45.6) 04/05/18 06:09 MCV 88 fl (84-94) 04/05/18 06:09 MCH 29 pg (28-32) 04/05/18 06:09 MCHC 33 % (32-34) 04/05/18 06:09 RDW 13.1 % (13.2-15.2) L 04/05/18 06:09 Plt Count 417 K/mm3 (140-440) 04/05/18 06:09 Lymph % (Auto) 5.7 % (13.4-35.0) L 04/04/18 05:50 [place] % (Auto) 12.7 % (0.0-7.3) H 04/04/18 05:50 Eos % (Auto) 0.1 % (0.0-4.3) 04/04/18 05:50 Baso % (Auto) 0.1 % (0.0-1.8) 04/04/18 05:50 Lymph # 0.5 K/mm3 (1.2-5.4) L 04/04/18 05:50 [place] # 1.2 K/mm3 (0.0-0.8) H 04/04/18 05:50 Eos # 0.0 K/mm3 (0.0-0.4) 04/04/18 05:50 Baso # 0.0 K/mm3 (0.0-0.1) 04/04/18 05:50 Add Manual Diff Complete 04/02/18 22:02 Total Counted 100 04/02/18 22:02 Seg Neutrophils % 81.4 % (40.0-70.0) H 04/04/18 05:50 Seg Neuts % (Manual) 94.0 % (40.0-70.0) H 04/02/18 22:02 Band Neutrophils % 0 % 04/02/18 22:02 Lymphocytes % (Manual) 5.0 % (13.4-35.0) L 04/02/18 22:02 Reactive Lymphs % (Man) 0 % 04/02/18 22:02 Monocytes % (Manual) 0 % (0.0-7.3) 04/02/18 22:02 Eosinophils % (Manual) 1.0 % (0.0-4.3) 04/02/18 22:02 Basophils % (Manual) 0 % (0.0-1.8) 04/02/18 22:02 Metamyelocytes % 0 % 04/02/18 22:02 Myelocytes % 0 % 04/02/18 22:02 Promyelocytes % 0 % 04/02/18 22:02 Blast Cells % 0 % 04/02/18 22:02 Nucleated RBC % Not Reportable 04/02/18 22:02 Seg Neutrophils # 7.9 K/mm3 (1.8-7.7) H 04/04/18 05:50 Seg Neutrophils # Man 10.7 K/mm3 (1.8-7.7) H 04/02/18 22:02 Band Neutrophils # 0.0 K/mm3 04/02/18 22:02 Lymphocytes # (Manual) 0.6 K/mm3 (1.2-5.4) L 04/02/18 22:02 Abs React Lymphs (Man) 0.0 K/mm3 04/02/18 22:02 Monocytes # (Manual) 0.0 K/mm3 (0.0-0.8) 04/02/18 22:02 Eosinophils # (Manual) 0.1 K/mm3 (0.0-0.4) 04/02/18 22:02 Basophils # (Manual) 0.0 K/mm3 (0.0-0.1) 04/02/18 22:02 Metamyelocytes # 0.0 K/mm3 04/02/18 22:02 Myelocytes # 0.0 K/mm3 04/02/18 22:02 Promyelocytes # 0.0 K/mm3 04/02/18 22:02 Blast Cells # 0.0 K/mm3 04/02/18 22:02 WBC Morphology Not Reportable 04/02/18 22:02 Hypersegmented Neuts Not Reportable 04/02/18 22:02 Hyposegmented Neuts Not Reportable 04/02/18 22:02 Hypogranular Neuts Not Reportable 04/02/18 22:02 Smudge Cells Not Reportable 04/02/18 22:02 Toxic Granulation Not Reportable 04/02/18 22:02 Toxic Vacuolation Not Reportable 04/02/18 22:02 Dohle Bodies Not Reportable 04/02/18 22:02 Pelger-Huet Anomaly Not Reportable 04/02/18 22:02 Wilver Rods Not Reportable 04/02/18 22:02 Platelet Estimate Consistent w auto 04/02/18 22:02 Clumped Platelets Not Reportable 04/02/18 22:02 Plt Clumps, EDTA Not Reportable 04/02/18 22:02 Large Platelets 1+ 04/02/18 22:02 Giant Platelets Not Reportable 04/02/18 22:02 Platelet Satelliting Not Reportable 04/02/18 22:02 Plt Morphology Comment Not Reportable 04/02/18 22:02 RBC Morphology Normal 04/02/18 22:02 Dimorphic RBCs Not Reportable 04/02/18 22:02 Polychromasia Not Reportable 04/02/18 22:02 Hypochromasia Not Reportable 04/02/18 22:02 Poikilocytosis Not Reportable 04/02/18 22:02 Anisocytosis Not Reportable 04/02/18 22:02 Microcytosis Not Reportable 04/02/18 22:02 Macrocytosis Not Reportable 04/02/18 22:02 Spherocytes Not Reportable 04/02/18 22:02 Pappenheimer Bodies Not Reportable 04/02/18 22:02 Sickle Cells Not Reportable 04/02/18 22:02 Target Cells Not Reportable 04/02/18 22:02 Tear Drop Cells Not Reportable 04/02/18 22:02 Ovalocytes Not Reportable 04/02/18 22:02 Helmet Cells Not Reportable 04/02/18 22:02 [place] Bodies Not Reportable 04/02/18 22:02 [place] Rings Not Reportable 04/02/18 22:02 [place] Cells Not Reportable 04/02/18 22:02 Bite Cells Not Reportable 04/02/18 22:02 Crenated Cell Not Reportable 04/02/18 22:02 Elliptocytes Not Reportable 04/02/18 22:02 Acanthocytes (Spur) Not Reportable 04/02/18 22:02 Rouleaux Not Reportable 04/02/18 22:02 Hemoglobin C Crystals Not Reportable 04/02/18 22:02 Schistocytes Not Reportable 04/02/18 22:02 Malaria parasites Not Reportable 04/02/18 22:02 Karri Bodies Not Reportable 04/02/18 22:02 Hem Pathologist Commnt No 04/02/18 22:02 Sodium 140 mmol/L (137-145) 04/05/18 06:09 Potassium 3.1 mmol/L (3.6-5.0) L 04/05/18 06:09 Chloride 100.4 mmol/L (98-107) 04/05/18 06:09 Carbon Dioxide 25 mmol/L (22-30) 04/05/18 06:09 Anion Gap 18 mmol/L 04/05/18 06:09 BUN 3 mg/dL (9-20) L 04/05/18 06:09 Creatinine 0.7 mg/dL (0.8-1.5) L 04/05/18 06:09 Estimated GFR > 60 ml/min 04/05/18 06:09 BUN/Creatinine Ratio 4 % 04/05/18 06:09 Glucose 90 mg/dL (75-100) 04/05/18 06:09 Lactic Acid 1.90 mmol/L (0.7-2.0) 04/03/18 10:47 Calcium 9.0 mg/dL (8.4-10.2) 04/05/18 06:09 Total Bilirubin 0.30 mg/dL (0.1-1.2) 04/05/18 06:09 Direct Bilirubin < 0.2 mg/dL (0-0.2) 04/03/18 16:37 Indirect Bilirubin 0.2 mg/dL 04/03/18 16:37 AST 9 units/L (5-40) 04/05/18 06:09 ALT 8 units/L (7-56) 04/05/18 06:09 Alkaline Phosphatase 47 units/L (35-129) 04/05/18 06:09 C-Reactive Protein 23.00 mg/dL (0.00-1.30) H 04/05/18 08:09 Total Protein 6.6 g/dL (6.3-8.2) 04/05/18 06:09 Albumin 2.8 g/dL (3.9-5) L 04/05/18 06:09 Albumin/Globulin Ratio 0.7 % 04/05/18 06:09 Urine Color Yellow (Yellow) 04/03/18 19:50 Urine Turbidity Clear (Clear) 04/03/18 19:50 Urine pH 7.0 (5.0-7.0) 04/03/18 19:50 Ur Specific [place] 1.012 (1.003-1.030) 04/03/18 19:50 Urine Protein <15 mg/dl mg/dL (Negative) 04/03/18 19:50 Urine Glucose (UA) Neg mg/dL (Negative) 04/03/18 19:50 Urine Ketones Tr mg/dL (Negative) 04/03/18 19:50 Urine Blood Neg (Negative) 04/03/18 19:50 Urine Nitrite Neg (Negative) 04/03/18 19:50 Urine Bilirubin Neg (Negative) 04/03/18 19:50 Urine Urobilinogen < 2.0 mg/dL (<2.0) 04/03/18 19:50 Ur Leukocyte Esterase Neg (Negative) 04/03/18 19:50 Urine WBC (Auto) 2.0 /HPF (0.0-6.0) 04/03/18 19:50 Urine RBC (Auto) 5.0 /HPF (0.0-6.0) 04/03/18 19:50 Urine Bacteria (Auto) 1+ /HPF (Negative) 04/03/18 19:50 Urine Mucus Few /HPF 04/03/18 19:50 Hep Bs Antigen Non-reactive (Negative) 04/04/18 15:31 Hepatitis C Antibody Non-reactive (NonReactive) 04/04/18 15:31
--- NOTE | 2018-04-05 15:03 | Consultation ---
History of Present Illness - Reason for Consult Consult date: 04/05/18 fever, abdominal pain Requesting physician: JESSICA VELEZ - History of Present Illness 28 y/o male with no medical history; recently admitted on 03/29/18 - 04/04 due to 3 day-history of worsening abdominal pain. Patient reports 3 years history of RLQ/SP colic pain on/off associated with nausea, vomiting and sometimes diarrhea , mainly after he eats barbicue. Last 3 days pain become 10/10 initially in the epigastric then radiating to the RLQ. He reports subjective fever and malaise. C diff on 03/[address] abdomen showed CRP 23.30. stool leukocytes with few WBCs. Stool cx neg. blood cx neg. CT scan showed significant inflammatory change in the right lower quadrant with thickening of the wall of the terminal ileum, cecum, and ascending colon along with dilated appendix and fluid filled colon. Seen by ID for sepsis from likely Inflammatory enterocolitis ? infectious vs Crohn's. patient was discharged on levaquin 500 mg po qday plus flagyl 500 mg po q8h total 7 days Unfortunately, readmitted due to severe diffuse pain, no diarrhea and fever at 101. In the ED, temp 101.2, HR 102, R 17, BP 134/60. WBC 9.7. Hg 12.6. Plat 402. Creat 0.6. Repeat CT scan findings suggestive of Crohn's disease (no evidence of obstruction. KUB this am shows mild improvement. Hep C ab neg. Microbiology: Blood cultures: 03/30 ngtd Current Antimicrobials: levaquin Previous Antimicrobials: Past History Past Medical History: No medical history Past Surgical History: No surgical history Social history: denies: smoking, alcohol abuse Family history: no significant family history Medications and Allergies Allergies Allergy/AdvReac Type Severity Reaction Status Date / Time No Known Allergies Allergy Unverified 03/29/18 14:49 Home Medications Medication Instructions Recorded Confirmed Last Taken Type Bacillus Coagulans [Probiotic] 1 each PO DAILY #30 tab.chew 04/02/18 04/05/18 Unknown Rx levoFLOXacin [Levaquin] 750 mg PO QDAY #10 tablet 04/02/18 04/05/18 Unknown Rx metroNIDAZOLE [Flagyl] 500 mg PO Q8HR #30 tablet 04/02/18 04/05/18 Unknown Rx Active Meds: Active Medications Acetaminophen (Tylenol) 650 mg PO Q4H PRN PRN Reason: Pain MILD(1-3)/Fever >100.5/HUDSON Bisacodyl (Dulcolax) 10 mg IN ONCE ONE Stop: 04/05/18 17:01 Hydromorphone HCl (Dilaudid) 0.25 mg IV Q3H PRN PRN Reason: Pain, Moderate (4-6) Dextrose/Sodium Chloride (D5ns) 1,000 mls @ 100 mls/hr IV DIRECT MC Last Admin: 04/04/18 21:59 Dose: 100 mls/hr Levofloxacin/Dextrose (Levaquin 750mg/150ml) 750 mg in 150 mls @ 100 mls/hr IV Q24HR MC; Protocol Last Admin: 04/05/18 10:01 Dose: 100 mls/hr Metronidazole (Flagyl 500 Mg/100 Ml) 500 mg in 100 mls @ 100 mls/hr IV Q8HR MC ; Protocol Last Admin: 04/05/18 14:10 Dose: 100 mls/hr Magnesium Citrate (Citrate Of Magnesia) 300 ml PO ONCE ONE Stop: 04/05/18 17:01 Morphine Sulfate (Morphine) 2 mg IV Q4H PRN PRN Reason: Pain, Moderate (4-6) Last Admin: 04/04/18 21:59 Dose: 2 mg Ondansetron HCl (Zofran) 4 mg IV Q8H PRN PRN Reason: Nausea And Vomiting Sodium Chloride (Sodium Chloride Flush Syringe 10 Ml) 10 ml IV BID MC Last Admin: 04/05/18 10:01 Dose: 10 ml Sodium Chloride (Sodium Chloride Flush Syringe 10 Ml) 10 ml IV PRN PRN PRN Reason: LINE FLUSH Review of Systems All systems: negative (as per HPI rest neg) Physical Examination - Physical Exam Narrative exam: General appearance: Alert in NAD, conversant Eyes: anicteric sclerae, moist conjunctivae; no lid-lag; PERRLA HENT: Atraumatic; oropharynx clear with moist mucous membranes and no mucosal ulcerations/no oral thrush; normal hard and soft palate. Normal external ears. Neck: Trachea midline; supple, no thyromegaly or lymphadenopathy Lungs: CTA, with normal respiratory effort and no intercostal retractions CV: RRR, no murmurs Abdomen: Soft, mild diffuse tenderness Extremities: No peripheral edema or extremity lymphadenopathy Skin: Normal temperature, turgor and texture; no rash, ulcers or subcutaneous nodules Psych: Appropriate affect, alert and oriented to person, place and time. Neuro: alert and oriented x 3. Moving all extermities Lines: No CVL / PICC - Constitutional Vitals: Vital Signs Temp Pulse Resp BP Pulse Ox 98.5 F 74 16 115/61 99 04/05/18 11:40 04/05/18 11:40 04/05/18 11:40 04/05/18 11:40 04/05/18 11:40 Temperature -Last 24 Hours Temperature 98.5 F Temperature 98.5 F Temperature 98.7 F Temperature 99.2 F Results - Labs CBC & Chem 7: 04/05/18 06:09 04/05/18 06:09 Labs: Abnormal lab results 04/05/18 04/05/18 04/05/18 Range/Units 06:09 06:09 08:09 Hgb 11.7 L (11.8-15.2) gm/dl RDW 13.1 L (13.2-15.2) % Potassium 3.1 L (3.6-5.0) mmol/L BUN 3 L (9-20) mg/dL Creatinine 0.7 L (0.8-1.5) mg/dL C-Reactive Protein 23.00 H (0.00-1.30) mg/dL Albumin 2.8 L (3.9-5) g/dL Assessment and Plan Assessment: 1) Sepsis: Present on admission, manifested by fever, tachycardia. Etiology most likely Inflammatory enterocolitis ? crohn's, less likely infectious. Fever restarted on PO levaquin and flagyl. 2) Inflammatory enterocolitis ? crohn's, less likely infectious -C diff on 03/30 negative. -CRP 23.30 -Stool leukocytes with few WBCs. -Stool cx neg -03/30 blood cx neg -CT scan showed significant inflammatory change in the right lower quadrant with thickening of the wall of the terminal ileum, cecum, and ascending colon along with dilated appendix and fluid filled colon. -discharged on levaquin 500 mg po qday plus flagyl 500 mg po q8h total 7 days -Repeat CT scan findings suggestive of Crohn's disease (no evidence of obstruction. Plan: -no blood cx sent -check CRP -stop levaquin -start zosyn -did not tolerate flagyl -consider systemic steroids - natalia ask GI -agree with colonoscopy Thank you for your consultation, will follow up with you. Emelina Solorzano MD Infectious Diseases Specialist [facility] M [phone] O [phone]
[2018-04-05] MEDS: D5NS 1,000 ML IV SCH (17:32)
--- NOTE | 2018-04-05 19:43 | Consultation ---
History of Present Illness Consult date: 04/05/18 Reason for consult: abdominal pain Requesting physician: YARITZA CARDONA Chief complaint: abdominal pain - History of present illness History of present illness: 28yo M returns to hospital after recent discharge for abdominal pain. Pt reported that soon after discharge, he had recurrent pain with eating a banana and drinking water. Based on the info from the last admission, there is a concern for Crohn's disease. Currently, patient is pain free. He is currently undergoing a bowel prep for a c-scope. In retrospect, he and his father report that he has intermitent pain in the past. Past History Past Medical History: No medical history Past Surgical History: No surgical history Social history: denies: smoking, alcohol abuse Family history: no significant family history Medications and Allergies Allergies Allergy/AdvReac Type Severity Reaction Status Date / Time No Known Allergies Allergy Unverified 03/29/18 14:49 Home Medications Medication Instructions Recorded Confirmed Last Taken Type Bacillus Coagulans [Probiotic] 1 each PO DAILY #30 tab.chew 04/02/18 04/05/18 Unknown Rx levoFLOXacin [Levaquin] 750 mg PO QDAY #10 tablet 04/02/18 04/05/18 Unknown Rx metroNIDAZOLE [Flagyl] 500 mg PO Q8HR #30 tablet 04/02/18 04/05/18 Unknown Rx Active Meds: Active Medications Acetaminophen (Tylenol) 650 mg PO Q4H PRN PRN Reason: Pain MILD(1-3)/Fever >100.5/HUDSON Hydromorphone HCl (Dilaudid) 0.25 mg IV Q3H PRN PRN Reason: Pain, Moderate (4-6) Dextrose/Sodium Chloride (D5ns) 1,000 mls @ 100 mls/hr IV DIRECT MC Last Admin: 04/05/18 17:32 Dose: 100 mls/hr Levofloxacin/Dextrose (Levaquin 750mg/150ml) 750 mg in 150 mls @ 100 mls/hr IV Q24HR MC; Protocol Last Admin: 04/05/18 10:01 Dose: 100 mls/hr Metronidazole (Flagyl 500 Mg/100 Ml) 500 mg in 100 mls @ 100 mls/hr IV Q8HR MC ; Protocol Last Admin: 04/05/18 14:10 Dose: 100 mls/hr Morphine Sulfate (Morphine) 2 mg IV Q4H PRN PRN Reason: Pain, Moderate (4-6) Last Admin: 04/04/18 21:59 Dose: 2 mg Ondansetron HCl (Zofran) 4 mg IV Q8H PRN PRN Reason: Nausea And Vomiting Sodium Chloride (Sodium Chloride Flush Syringe 10 Ml) 10 ml IV BID MC Last Admin: 04/05/18 10:01 Dose: 10 ml Sodium Chloride (Sodium Chloride Flush Syringe 10 Ml) 10 ml IV PRN PRN PRN Reason: LINE FLUSH Review of Systems - Constitutional no fever, no chills, no chronic pain - Cardiovascular no chest pain - Respiratory no cough, no shortness of breath - Gastrointestinal dyspepsia/bloating, no abdominal pain, no nausea, no vomiting, no hematemesis, no coffee ground emesis, no BRBPR, no melena, no hematochezia - Genitourinary no dysuria - Muskuloskeletal no low back pain - Integumentary no rash, no sores, no wounds Exam Vital Signs Temp Pulse BP Pulse Ox 99.1 F 90 156/69 100 04/02/18 21:48 04/02/18 21:48 04/02/18 21:48 04/02/18 21:48 - General physical appearance Positive: no distress, no pain, other (looks well) - Eyes Positive: normal occular movement - Respiratory Positive: normal expansion, normal respiratory effort, clear to auscultation - Cardiovascular Rhythm: regular - Abdomen Abdomen: Present: soft, distended (mild). Absent: tender, bowel sounds hypoactive, guarding, rigid - Integumentary no rash, no growths, no abnormal pigmentation - Neurologic Neurologic: alert and oriented to time, place and person, motor strength and sensation are grossly intact - Psychiatric Psychiatric: appropriate mood/affect, intact judgment & insight Results - Labs 04/05/18 06:09 04/05/18 06:09 Abnormal lab results 04/05/18 04/05/18 04/05/18 Range/Units 06:09 06:09 08:09 Hgb 11.7 L (11.8-15.2) gm/dl RDW 13.1 L (13.2-15.2) % Potassium 3.1 L (3.6-5.0) mmol/L BUN 3 L (9-20) mg/dL Creatinine 0.7 L (0.8-1.5) mg/dL C-Reactive Protein 23.00 H (0.00-1.30) mg/dL Albumin 2.8 L (3.9-5) g/dL Diabetes panel 04/05/18 Range/Units 06:09 Sodium 140 (137-145) mmol/L Potassium 3.1 L (3.6-5.0) mmol/L Chloride 100.4 (98-107) mmol/L Carbon Dioxide 25 (22-30) mmol/L BUN 3 L (9-20) mg/dL Creatinine 0.7 L (0.8-1.5) mg/dL Glucose 90 (75-100) mg/dL Calcium 9.0 (8.4-10.2) mg/dL AST 9 (5-40) units/L ALT 8 (7-56) units/L Alkaline Phosphatase 47 (35-129) units/L Total Protein 6.6 (6.3-8.2) g/dL Albumin 2.8 L (3.9-5) g/dL Calcium panel 04/05/18 Range/Units 06:09 Calcium 9.0 (8.4-10.2) mg/dL Albumin 2.8 L (3.9-5) g/dL Pituitary panel 04/05/18 Range/Units 06:09 Sodium 140 (137-145) mmol/L Potassium 3.1 L (3.6-5.0) mmol/L Chloride 100.4 (98-107) mmol/L Carbon Dioxide 25 (22-30) mmol/L BUN 3 L (9-20) mg/dL Creatinine 0.7 L (0.8-1.5) mg/dL Glucose 90 (75-100) mg/dL Calcium 9.0 (8.4-10.2) mg/dL Adrenal panel 04/05/18 Range/Units 06:09 Sodium 140 (137-145) mmol/L Potassium 3.1 L (3.6-5.0) mmol/L Chloride 100.4 (98-107) mmol/L Carbon Dioxide 25 (22-30) mmol/L BUN 3 L (9-20) mg/dL Creatinine 0.7 L (0.8-1.5) mg/dL Glucose 90 (75-100) mg/dL Calcium 9.0 (8.4-10.2) mg/dL Total Bilirubin 0.30 (0.1-1.2) mg/dL AST 9 (5-40) units/L ALT 8 (7-56) units/L Alkaline Phosphatase 47 (35-129) units/L Total Protein 6.6 (6.3-8.2) g/dL Albumin 2.8 L (3.9-5) g/dL - Imaging CT scan - abdomen: report reviewed, image reviewed Assessment and Plan - Patient Problems (1) Abdominal pain Current Visit: No Status: Acute Qualifiers: Abdominal location: generalized Qualified Code(s): R10.84 - Generalized abdominal pain Plan to address problem: Pt stable. Pain has resolved. I agree with Dr. Jones' assessment that this is probably IBD. We will wait for the f/u labs and c-scope results. There is no need for urgent surgical intervention at this point. We will follow along. Please call with questions. time=30min
[2018-04-06] MEDS: ZOSYN/NS 4.5GM/100ML 4.5 GM/100 ML VIAL IV SCH ×3 (01:49→16:21)
[2018-04-06] MEDS: D5NS 1,000 ML IV SCH ×2 (05:09→21:42)
[2018-04-06 07:39] LABS: INR 1.25 (0.87-1.13)
[2018-04-06] MEDS: SODIUM CHLORIDE FLUSH SYRINGE 10 ML IV SCH ×2 (09:11→22:01)
--- NOTE | 2018-04-06 10:19 | Progress Note ---
Assessment and Plan Assessment: 1) Sepsis: resolved. Etiology Crohn's Disease.. 2) Inflammatory enterocolitis ? crohn's, less likely infectious -C diff on 03/30 negative. -CRP 23.30 -C4 low at 10 -C3 normal -Stool leukocytes with few WBCs. -Stool cx neg -03/30 blood cx neg -CT scan showed significant inflammatory change in the right lower quadrant with thickening of the wall of the terminal ileum, cecum, and ascending colon along with dilated appendix and fluid filled colon. -discharged on levaquin 500 mg po qday plus flagyl 500 mg po q8h total 7 days -Repeat CT scan findings suggestive of Crohn's disease (no evidence of obstruction) -Repeat CT -04/06 - small bowel and colon distended- findings may reflect paralytic ileus +/- enteritis. Extensive mucal thickening in terminal, ileum and cecum - highly suspicious for inflammatory Bowel Disease -Colonoscopy - 04/06 -" Deformity, stenosis ulceration of the ileocecal valve consistent with Crohn's disease. Cecal deformity with pseudopolyp formation". Ordered - Biopsies, Small bowel series. Can begin steroids after results of Quantiferon gold assay Hep B core Ab results. Plan: -continue Zosyn D2 -we ordered quantiferon TB gold and hepB core AB today -if continues to improve and NO for 24h then ok to d/c home augmentin 875 mg PO q12h total 10 days. pt did not tolerate po flagyl. [facility] M: [phone] O:[phone] Subjective Date of service: 04/06/18 Principal diagnosis: IBD Interval history: Patient sitting up in bed, watching television. Father at bedside. Patient stated that he was feeling better today, He states that he is anxious to get the results of his colonoscopy scheduled for today. Microbiology: Blood cultures: 03/30 ngtd Current Antimicrobials: Zosyn - 04/06 Previous Antimicrobiaals: Levaquin - 04/03-04/05 Flagyl - 04/03-04/05 - (Unable to tolerate) Objective - Exam Narrative Exam: General appearance: Alert in NAD, conversant Eyes: anicteric sclerae, moist conjunctivae; no lid-lag; PERRLA HENT: Atraumatic; oropharynx clear with moist mucous membranes and no mucosal ulcerations/no oral thrush; normal hard and soft palate. Normal external ears. Neck: Trachea midline; supple, no thyromegaly or lymphadenopathy Lungs: CTA, with normal respiratory effort and no intercostal retractions CV: RRR, no murmurs Abdomen: Soft, mild diffuse tenderness Extremities: No peripheral edema or extremity lymphadenopathy Skin: Normal temperature, turgor and texture; no rash, ulcers or subcutaneous nodules Psych: Appropriate affect, alert and oriented to person, place and time. Neuro: alert and oriented x 3. Moving all extermities Lines: No CVL / PICC - Constitutional Vitals: Vital Signs Temp Pulse Resp BP Pulse Ox 97.3 F L 67 20 114/69 98 04/06/18 05:17 04/06/18 05:17 04/06/18 05:17 04/06/18 05:17 04/06/18 05:17 Temperature -Last 24 Hours Temperature 97.3 F Temperature 99.0 F Temperature 98.0 F Temperature 98.5 F - Labs CBC & Chem 7: 04/05/18 06:09 04/06/18 13:38 Labs: Abnormal lab results 04/06/18 Range/Units 06:14 PT 16.4 H (12.2-14.9) Sec. INR 1.25 H (0.87-1.13)
[2018-04-06] MEDS ORDERED: NACL 0.9% 1000 ML 1,000 ML IV SCH (11:00)
[2018-04-06] MEDS ORDERED: DIPRIVAN 10 MG/ML IV ONE ×2 (12:14→12:41)
[2018-04-06] MEDS ORDERED: WATER FOR IRRIG STERILE IR ONE (12:20)
--- NOTE | 2018-04-06 12:44 | Operative Report ---
Operative Report Operative Report: Date of procedure: 04/06/2018 Preprocedure diagnosis: Abdominal pain, thickened distal small bowel and cecum suspicious for inflammatory bowel disease. Post procedure diagnosis: Deformed and ulcerated and stenotic ileocecal valve. Deformed cecum with pseudopolyps near the valve. Findings are consistent with Crohn's disease Procedure: Colonoscopy to the cecum abscesses of the ileum through the ileocecal valve Endoscopist: Dr. Jones Anesthesia: Monitored anesthesia care per anesthesia department Estimated blood loss: 0 Medications: Monitored anesthesia care. See separate report by anesthesia for details. After careful discussion of the nature and purpose of the procedure as well as details of the technique risks benefits and alternatives the patient gave consent. Please see recent history and physical from the office. The patient was placed in the left lateral decubitus position and medicated per anesthesia. A rectal exam was performed sphincter tone was normal there were no masses palpable. The [employer] [facility] [employer] 570 scope was passed transanally and advanced under continuous direct vision without difficulty to the cecum. The colon was well prepared. The cecum was performed and there were pseudopolyps present near the ileocecal valve. The ileocecal valve was very deformed, stenotic as well as ulcerated. The stenosis would not allow passage of the scope. Biopsies were taken however of the ileum through the valve. The ascending colon was normal and on forward and retroflexed views. The transverse colon, descending colon, and sigmoid colon were normal. The rectum was normal on forward and retroflexed views. The procedure was well-tolerated overall and the patient was observed in recovery. Conclusions: Deformity, stenosis ulceration of the ileocecal valve consistent with Crohn's disease. Cecal deformity with pseudopolyp formation. Normal colon otherwise. Plan: Await biopsies. Small bowel series. Await Quantiferon gold assay and Hep B core Ab. If negative, begin IV steroids. Signed electronically: Lex Jones M.D.
--- NOTE | 2018-04-06 13:53 | Progress Note ---
Assessment and Plan Assessment and plan: The patient is a 28-year-old male who just discharged 04/04/18 with abx for enteritis and outpt GI f/u presenting with a chief complaint of abdominal pain. He presents with abdominal pain, nausea, vomiting and subjective fever. Possible paralytic ileus Enteritis- ?IBD, C. diff negative in prior admission possible Crohns Peritoneal Irritation-Chronic Chronic Diarrhea with intermittent Nausea and vomiting due to enteritis Sepsis, due to above Hypokalemia, due to GI loss PLAN - Continue supportive care replete electrolytes, IV fluid, keep NPO except ice - Cont levaquin and flagyl IV -ID consulted - GI and Surgical input noted -Plan for colonocscopy today - Quantiferon and HEpatitis panel pending -Replace electrolytes - DVT Px with SCD -Plan of care discussed with the patient and father at bedside -For colonoscopy today. History Interval history: Abdominal pain, Fever Hospitalist Physical - Physical exam Narrative exam: GEN:Not in acute distress, lying in bed HEENT: Normocephalic, atraumatic, Neck: supple, No JVD Lungs: Clear to auscultaion bilaterally, no crackles Heart:S1 and S2 reg, no murmurs, rubs or gallop Abd:soft, tender lower abnd, non distended, Normal bowel sounds Ext: No edema, clubbing or cyanosis Neuro: Awake, alert, oriented X 3, Moves all extremities - Constitutional Vitals: Temp Pulse Resp BP Pulse Ox 98.1 F 69 22 117/75 99 04/06/18 12:35 04/06/18 13:00 04/06/18 13:00 04/06/18 13:00 04/06/18 13:00 Results - Labs CBC & Chem 7: 04/05/18 06:09 04/06/18 13:38 Labs: Laboratory Last Values WBC 4.6 K/mm3 (4.5-11.0) 04/05/18 06:09 RBC 4.03 M/mm3 (3.65-5.03) 04/05/18 06:09 Hgb 11.7 gm/dl (11.8-15.2) L 04/05/18 06:09 Hct 35.6 % (35.5-45.6) 04/05/18 06:09 MCV 88 fl (84-94) 04/05/18 06:09 MCH 29 pg (28-32) 04/05/18 06:09 MCHC 33 % (32-34) 04/05/18 06:09 RDW 13.1 % (13.2-15.2) L 04/05/18 06:09 Plt Count 417 K/mm3 (140-440) 04/05/18 06:09 Lymph % (Auto) 5.7 % (13.4-35.0) L 04/04/18 05:50 [place] % (Auto) 12.7 % (0.0-7.3) H 04/04/18 05:50 Eos % (Auto) 0.1 % (0.0-4.3) 04/04/18 05:50 Baso % (Auto) 0.1 % (0.0-1.8) 04/04/18 05:50 Lymph # 0.5 K/mm3 (1.2-5.4) L 04/04/18 05:50 [place] # 1.2 K/mm3 (0.0-0.8) H 04/04/18 05:50 Eos # 0.0 K/mm3 (0.0-0.4) 04/04/18 05:50 Baso # 0.0 K/mm3 (0.0-0.1) 04/04/18 05:50 Add Manual Diff Complete 04/02/18 22:02 Total Counted 100 04/02/18 22:02 Seg Neutrophils % 81.4 % (40.0-70.0) H 04/04/18 05:50 Seg Neuts % (Manual) 94.0 % (40.0-70.0) H 04/02/18 22:02 Band Neutrophils % 0 % 04/02/18 22:02 Lymphocytes % (Manual) 5.0 % (13.4-35.0) L 04/02/18 22:02 Reactive Lymphs % (Man) 0 % 04/02/18 22:02 Monocytes % (Manual) 0 % (0.0-7.3) 04/02/18 22:02 Eosinophils % (Manual) 1.0 % (0.0-4.3) 04/02/18 22:02 Basophils % (Manual) 0 % (0.0-1.8) 04/02/18 22:02 Metamyelocytes % 0 % 04/02/18 22:02 Myelocytes % 0 % 04/02/18 22:02 Promyelocytes % 0 % 04/02/18 22:02 Blast Cells % 0 % 04/02/18 22:02 Nucleated RBC % Not Reportable 04/02/18 22:02 Seg Neutrophils # 7.9 K/mm3 (1.8-7.7) H 04/04/18 05:50 Seg Neutrophils # Man 10.7 K/mm3 (1.8-7.7) H 04/02/18 22:02 Band Neutrophils # 0.0 K/mm3 04/02/18 22:02 Lymphocytes # (Manual) 0.6 K/mm3 (1.2-5.4) L 04/02/18 22:02 Abs React Lymphs (Man) 0.0 K/mm3 04/02/18 22:02 Monocytes # (Manual) 0.0 K/mm3 (0.0-0.8) 04/02/18 22:02 Eosinophils # (Manual) 0.1 K/mm3 (0.0-0.4) 04/02/18 22:02 Basophils # (Manual) 0.0 K/mm3 (0.0-0.1) 04/02/18 22:02 Metamyelocytes # 0.0 K/mm3 04/02/18 22:02 Myelocytes # 0.0 K/mm3 04/02/18 22:02 Promyelocytes # 0.0 K/mm3 04/02/18 22:02 Blast Cells # 0.0 K/mm3 04/02/18 22:02 WBC Morphology Not Reportable 04/02/18 22:02 Hypersegmented Neuts Not Reportable 04/02/18 22:02 Hyposegmented Neuts Not Reportable 04/02/18 22:02 Hypogranular Neuts Not Reportable 04/02/18 22:02 Smudge Cells Not Reportable 04/02/18 22:02 Toxic Granulation Not Reportable 04/02/18 22:02 Toxic Vacuolation Not Reportable 04/02/18 22:02 Dohle Bodies Not Reportable 04/02/18 22:02 Pelger-Huet Anomaly Not Reportable 04/02/18 22:02 Wilver Rods Not Reportable 04/02/18 22:02 Platelet Estimate Consistent w auto 04/02/18 22:02 Clumped Platelets Not Reportable 04/02/18 22:02 Plt Clumps, EDTA Not Reportable 04/02/18 22:02 Large Platelets 1+ 04/02/18 22:02 Giant Platelets Not Reportable 04/02/18 22:02 Platelet Satelliting Not Reportable 04/02/18 22:02 Plt Morphology Comment Not Reportable 04/02/18 22:02 RBC Morphology Normal 04/02/18 22:02 Dimorphic RBCs Not Reportable 04/02/18 22:02 Polychromasia Not Reportable 04/02/18 22:02 Hypochromasia Not Reportable 04/02/18 22:02 Poikilocytosis Not Reportable 04/02/18 22:02 Anisocytosis Not Reportable 04/02/18 22:02 Microcytosis Not Reportable 04/02/18 22:02 Macrocytosis Not Reportable 04/02/18 22:02 Spherocytes Not Reportable 04/02/18 22:02 Pappenheimer Bodies Not Reportable 04/02/18 22:02 Sickle Cells Not Reportable 04/02/18 22:02 Target Cells Not Reportable 04/02/18 22:02 Tear Drop Cells Not Reportable 04/02/18 22:02 Ovalocytes Not Reportable 04/02/18 22:02 Helmet Cells Not Reportable 04/02/18 22:02 [place] Bodies Not Reportable 04/02/18 22:02 [place] Rings Not Reportable 04/02/18 22:02 [place] Cells Not Reportable 04/02/18 22:02 Bite Cells Not Reportable 04/02/18 22:02 Crenated Cell Not Reportable 04/02/18 22:02 Elliptocytes Not Reportable 04/02/18 22:02 Acanthocytes (Spur) Not Reportable 04/02/18 22:02 Rouleaux Not Reportable 04/02/18 22:02 Hemoglobin C Crystals Not Reportable 04/02/18 22:02 Schistocytes Not Reportable 04/02/18 22:02 Malaria parasites Not Reportable 04/02/18 22:02 Karri Bodies Not Reportable 04/02/18 22:02 Hem Pathologist Commnt No 04/02/18 22:02 PT 16.4 Sec. (12.2-14.9) H 04/06/18 06:14 INR 1.25 (0.87-1.13) H 04/06/18 06:14 Sodium 140 mmol/L (137-145) 04/05/18 06:09 Potassium 3.1 mmol/L (3.6-5.0) L 04/05/18 06:09 Chloride 100.4 mmol/L (98-107) 04/05/18 06:09 Carbon Dioxide 25 mmol/L (22-30) 04/05/18 06:09 Anion Gap 18 mmol/L 04/05/18 06:09 BUN 3 mg/dL (9-20) L 04/05/18 06:09 Creatinine 0.7 mg/dL (0.8-1.5) L 04/05/18 06:09 Estimated GFR > 60 ml/min 04/05/18 06:09 BUN/Creatinine Ratio 4 % 04/05/18 06:09 Glucose 90 mg/dL (75-100) 04/05/18 06:09 Lactic Acid 1.90 mmol/L (0.7-2.0) 04/03/18 10:47 Calcium 9.0 mg/dL (8.4-10.2) 04/05/18 06:09 Total Bilirubin 0.30 mg/dL (0.1-1.2) 04/05/18 06:09 Direct Bilirubin < 0.2 mg/dL (0-0.2) 04/03/18 16:37 Indirect Bilirubin 0.2 mg/dL 04/03/18 16:37 AST 9 units/L (5-40) 04/05/18 06:09 ALT 8 units/L (7-56) 04/05/18 06:09 Alkaline Phosphatase 47 units/L (35-129) 04/05/18 06:09 C-Reactive Protein 23.00 mg/dL (0.00-1.30) H 04/05/18 08:09 Total Protein 6.6 g/dL (6.3-8.2) 04/05/18 06:09 Albumin 2.8 g/dL (3.9-5) L 04/05/18 06:09 Albumin/Globulin Ratio 0.7 % 04/05/18 06:09 Urine Color Yellow (Yellow) 04/03/18 19:50 Urine Turbidity Clear (Clear) 04/03/18 19:50 Urine pH 7.0 (5.0-7.0) 04/03/18 19:50 Ur Specific [place] 1.012 (1.003-1.030) 04/03/18 19:50 Urine Protein <15 mg/dl mg/dL (Negative) 04/03/18 19:50 Urine Glucose (UA) Neg mg/dL (Negative) 04/03/18 19:50 Urine Ketones Tr mg/dL (Negative) 04/03/18 19:50 Urine Blood Neg (Negative) 04/03/18 19:50 Urine Nitrite Neg (Negative) 04/03/18 19:50 Urine Bilirubin Neg (Negative) 04/03/18 19:50 Urine Urobilinogen < 2.0 mg/dL (<2.0) 04/03/18 19:50 Ur Leukocyte Esterase Neg (Negative) 04/03/18 19:50 Urine WBC (Auto) 2.0 /HPF (0.0-6.0) 04/03/18 19:50 Urine RBC (Auto) 5.0 /HPF (0.0-6.0) 04/03/18 19:50 Urine Bacteria (Auto) 1+ /HPF (Negative) 04/03/18 19:50 Urine Mucus Few /HPF 04/03/18 19:50 Hep Bs Antigen Non-reactive (Negative) 04/04/18 15:31 Hepatitis C Antibody Non-reactive (NonReactive) 04/04/18 15:31
[2018-04-06 14:24] LABS: BUN/Creatinine Ratio 5; Blood Urea Nitrogen 4 mg/dL (9-20); Calcium 8.7 mg/dL (8.4-10.2); Hemolysis Index 6
--- NOTE | 2018-04-06 18:49 | Anesthesia Consultation ---
Anesthesia Consult and Med Hx - Airway Anesthetic Teeth Evaluation: Good ROM Head & Neck: Adequate Mental/Hyoid Distance: Adequate Mallampati Class: Class II Intubation Access Assessment: Probably Good - Pulmonary Exam CTA: Yes - Cardiac Exam Cardiac Exam: No Murmur - Pre-Operative Health Status ASA Pre-Surgery Classification: ASA2 Proposed Anesthetic Plan: MAC - Pulmonary Hx Asthma: Yes Hx Pneumonia: No - Central Nervous System Hx Psychiatric Problems: No - Endocrine Hx End Stage Renal Disease: No
--- NOTE | 2018-04-06 18:49 | Anesthesia Day of Surgery ---
Anesthesia Day of Surgery - Day of Surgery Patient Examined: Yes Patient H&P Reviewed: Yes Patient is NPO: Yes Beta Blockers: No
[2018-04-07] MEDS: KCL 10MEQ/100ML 10 MEQ/100 ML BAG IV SCH ×2 (08:27→09:44)
--- NOTE | 2018-04-07 08:43 | Progress Note ---
Assessment and Plan Assessment: 1) Sepsis: resolved. Etiology Crohn's Disease.. 2) Inflammatory enterocolitis ? crohn's, less likely infectious -C diff on 03/30 negative. -CRP 23.30 -C4 low at 10 -C3 normal -Stool leukocytes with few WBCs. -Stool cx neg -03/30 blood cx neg -CT scan showed significant inflammatory change in the right lower quadrant with thickening of the wall of the terminal ileum, cecum, and ascending colon along with dilated appendix and fluid filled colon. -discharged on levaquin 500 mg po qday plus flagyl 500 mg po q8h total 7 days -Repeat CT scan findings suggestive of Crohn's disease (no evidence of obstruction) -Repeat CT -04/06 - small bowel and colon distended- findings may reflect paralytic ileus +/- enteritis. Extensive mucal thickening in terminal, ileum and cecum - highly suspicious for inflammatory Bowel Disease -Colonoscopy - 04/06 -" Deformity, stenosis ulceration of the ileocecal valve consistent with Crohn's disease. Cecal deformity with pseudopolyp formation". Ordered - Biopsies, Small bowel series. Can begin steroids after results of Quantiferon gold assay Hep B core Ab results. Plan: -continue Zosyn D3 quantiferon TB gold and hepB core AB pending patient is NPO requesting to be fed after bowel series -if continues to improve and NO temperature for 24h then ok to d/c home augmentin 875 mg PO q12h total 10 days. pt did not tolerate po flagyl. -ID clinic f/u on 04-22 to for results of ESCOBAR and quanteferion [facility] M: [id number] O:[phone] Subjective Date of service: 04/07/18 Principal diagnosis: IBD Interval history: Patient sitting up in bed, talking to his father. He stated that he was upset because he hasn't had anything to eat. He stated that he was feeling better and wanted to go home. Microbiology: Blood cultures: 03/30 ngtd Current Antimicrobials: Zosyn - 04/06 Previous Antimicrobiaals: Levaquin - 04/03-04/05 Flagyl - 04/03-04/05 - (Unable to tolerate) Objective - Exam Narrative Exam: General appearance: Alert in NAD, conversant Eyes: anicteric sclerae, moist conjunctivae; no lid-lag; PERRLA HENT: Atraumatic; oropharynx clear with moist mucous membranes and no mucosal ulcerations/no oral thrush; normal hard and soft palate. Normal external ears. Neck: Trachea midline; supple, no thyromegaly or lymphadenopathy Lungs: CTA, with normal respiratory effort and no intercostal retractions CV: RRR, no murmurs Abdomen: Soft, mild diffuse tenderness Extremities: No peripheral edema or extremity lymphadenopathy Skin: Normal temperature, turgor and texture; no rash, ulcers or subcutaneous nodules Psych: Appropriate affect, alert and oriented to person, place and time. Neuro: alert and oriented x 3. Moving all extermities Lines: No CVL / PICC - Constitutional Vitals: Vital Signs Temp Pulse Resp BP Pulse Ox 98.1 F 55 L 18 107/65 100 04/07/18 05:20 04/07/18 05:20 04/07/18 05:20 04/07/18 05:20 04/07/18 05:20 Temperature -Last 24 Hours Temperature 98.1 F Temperature 98.1 F Temperature 98.6 F Temperature 98.1 F Temperature 98.6 F Temperature 98.6 F - Labs CBC & Chem 7: 04/05/18 06:09 04/06/18 13:38 Labs: Abnormal lab results 04/06/18 Range/Units 13:38 Potassium 3.2 L (3.6-5.0) mmol/L BUN 4 L (9-20) mg/dL
--- NOTE | 2018-04-07 09:09 | Progress Note ---
Assessment and Plan Assessment and plan: The patient is a 28-year-old male who just discharged 04/04/18 with abx for enteritis and outpt GI f/u presenting with a chief complaint of abdominal pain. He presents with abdominal pain, nausea, vomiting and subjective fever. Possible paralytic ileus Peritoneal Irritation-Chronic Chronic Diarrhea with intermittent Nausea and vomiting due to enteritis Sepsis, due to above Hypokalemia, due to GI loss PLAN - Continue supportive care replete electrolytes, IV fluid, keep NPO except ice - Cont levaquin and flagyl IV -ID following - GI and Surgical input noted - Colonocscopy yesterday, picture resembles Crohn's - Quantiferon pending -Replace electrolytes - DVT Px with SCD -Plan of care discussed with the patient and father at bedside History Interval history: Less abdominal pain, Fever Colonoscopy done yesterday Hospitalist Physical - Physical exam Narrative exam: GEN:Not in acute distress, lying in bed HEENT: Normocephalic, atraumatic, Neck: supple, No JVD Lungs: Clear to auscultaion bilaterally, no crackles Heart:S1 and S2 reg, no murmurs, rubs or gallop Abd:soft, tender lower abd, non distended, Normal bowel sounds Ext: No edema, clubbing or cyanosis Neuro: Awake, alert, oriented X 3, Moves all extremities - Constitutional Vitals: Temp Pulse Resp BP Pulse Ox 98.1 F 55 L 18 107/65 100 04/07/18 05:20 04/07/18 05:20 04/07/18 05:20 04/07/18 05:20 04/07/18 05:20 Results - Labs CBC & Chem 7: 04/05/18 06:09 04/06/18 13:38 Labs: Laboratory Last Values WBC 4.6 K/mm3 (4.5-11.0) 04/05/18 06:09 RBC 4.03 M/mm3 (3.65-5.03) 04/05/18 06:09 Hgb 11.7 gm/dl (11.8-15.2) L 04/05/18 06:09 Hct 35.6 % (35.5-45.6) 04/05/18 06:09 MCV 88 fl (84-94) 04/05/18 06:09 MCH 29 pg (28-32) 04/05/18 06:09 MCHC 33 % (32-34) 04/05/18 06:09 RDW 13.1 % (13.2-15.2) L 04/05/18 06:09 Plt Count 417 K/mm3 (140-440) 04/05/18 06:09 Lymph % (Auto) 5.7 % (13.4-35.0) L 04/04/18 05:50 [place] % (Auto) 12.7 % (0.0-7.3) H 04/04/18 05:50 Eos % (Auto) 0.1 % (0.0-4.3) 04/04/18 05:50 Baso % (Auto) 0.1 % (0.0-1.8) 04/04/18 05:50 Lymph # 0.5 K/mm3 (1.2-5.4) L 04/04/18 05:50 [place] # 1.2 K/mm3 (0.0-0.8) H 04/04/18 05:50 Eos # 0.0 K/mm3 (0.0-0.4) 04/04/18 05:50 Baso # 0.0 K/mm3 (0.0-0.1) 04/04/18 05:50 Add Manual Diff Complete 04/02/18 22:02 Total Counted 100 04/02/18 22:02 Seg Neutrophils % 81.4 % (40.0-70.0) H 04/04/18 05:50 Seg Neuts % (Manual) 94.0 % (40.0-70.0) H 04/02/18 22:02 Band Neutrophils % 0 % 04/02/18 22:02 Lymphocytes % (Manual) 5.0 % (13.4-35.0) L 04/02/18 22:02 Reactive Lymphs % (Man) 0 % 04/02/18 22:02 Monocytes % (Manual) 0 % (0.0-7.3) 04/02/18 22:02 Eosinophils % (Manual) 1.0 % (0.0-4.3) 04/02/18 22:02 Basophils % (Manual) 0 % (0.0-1.8) 04/02/18 22:02 Metamyelocytes % 0 % 04/02/18 22:02 Myelocytes % 0 % 04/02/18 22:02 Promyelocytes % 0 % 04/02/18 22:02 Blast Cells % 0 % 04/02/18 22:02 Nucleated RBC % Not Reportable 04/02/18 22:02 Seg Neutrophils # 7.9 K/mm3 (1.8-7.7) H 04/04/18 05:50 Seg Neutrophils # Man 10.7 K/mm3 (1.8-7.7) H 04/02/18 22:02 Band Neutrophils # 0.0 K/mm3 04/02/18 22:02 Lymphocytes # (Manual) 0.6 K/mm3 (1.2-5.4) L 04/02/18 22:02 Abs React Lymphs (Man) 0.0 K/mm3 04/02/18 22:02 Monocytes # (Manual) 0.0 K/mm3 (0.0-0.8) 04/02/18 22:02 Eosinophils # (Manual) 0.1 K/mm3 (0.0-0.4) 04/02/18 22:02 Basophils # (Manual) 0.0 K/mm3 (0.0-0.1) 04/02/18 22:02 Metamyelocytes # 0.0 K/mm3 04/02/18 22:02 Myelocytes # 0.0 K/mm3 04/02/18 22:02 Promyelocytes # 0.0 K/mm3 04/02/18 22:02 Blast Cells # 0.0 K/mm3 04/02/18 22:02 WBC Morphology Not Reportable 04/02/18 22:02 Hypersegmented Neuts Not Reportable 04/02/18 22:02 Hyposegmented Neuts Not Reportable 04/02/18 22:02 Hypogranular Neuts Not Reportable 04/02/18 22:02 Smudge Cells Not Reportable 04/02/18 22:02 Toxic Granulation Not Reportable 04/02/18 22:02 Toxic Vacuolation Not Reportable 04/02/18 22:02 Dohle Bodies Not Reportable 04/02/18 22:02 Pelger-Huet Anomaly Not Reportable 04/02/18 22:02 Wilver Rods Not Reportable 04/02/18 22:02 Platelet Estimate Consistent w auto 04/02/18 22:02 Clumped Platelets Not Reportable 04/02/18 22:02 Plt Clumps, EDTA Not Reportable 04/02/18 22:02 Large Platelets 1+ 04/02/18 22:02 Giant Platelets Not Reportable 04/02/18 22:02 Platelet Satelliting Not Reportable 04/02/18 22:02 Plt Morphology Comment Not Reportable 04/02/18 22:02 RBC Morphology Normal 04/02/18 22:02 Dimorphic RBCs Not Reportable 04/02/18 22:02 Polychromasia Not Reportable 04/02/18 22:02 Hypochromasia Not Reportable 04/02/18 22:02 Poikilocytosis Not Reportable 04/02/18 22:02 Anisocytosis Not Reportable 04/02/18 22:02 Microcytosis Not Reportable 04/02/18 22:02 Macrocytosis Not Reportable 04/02/18 22:02 Spherocytes Not Reportable 04/02/18 22:02 Pappenheimer Bodies Not Reportable 04/02/18 22:02 Sickle Cells Not Reportable 04/02/18 22:02 Target Cells Not Reportable 04/02/18 22:02 Tear Drop Cells Not Reportable 04/02/18 22:02 Ovalocytes Not Reportable 04/02/18 22:02 Helmet Cells Not Reportable 04/02/18 22:02 [place] Bodies Not Reportable 04/02/18 22:02 [place] Rings Not Reportable 04/02/18 22:02 [place] Cells Not Reportable 04/02/18 22:02 Bite Cells Not Reportable 04/02/18 22:02 Crenated Cell Not Reportable 04/02/18 22:02 Elliptocytes Not Reportable 04/02/18 22:02 Acanthocytes (Spur) Not Reportable 04/02/18 22:02 Rouleaux Not Reportable 04/02/18 22:02 Hemoglobin C Crystals Not Reportable 04/02/18 22:02 Schistocytes Not Reportable 04/02/18 22:02 Malaria parasites Not Reportable 04/02/18 22:02 Karri Bodies Not Reportable 04/02/18 22:02 Hem Pathologist Commnt No 04/02/18 22:02 PT 16.4 Sec. (12.2-14.9) H 04/06/18 06:14 INR 1.25 (0.87-1.13) H 04/06/18 06:14 Sodium 142 mmol/L (137-145) 04/06/18 13:38 Potassium 3.2 mmol/L (3.6-5.0) L 04/06/18 13:38 Chloride 103.4 mmol/L (98-107) 04/06/18 13:38 Carbon Dioxide 23 mmol/L (22-30) 04/06/18 13:38 Anion Gap 19 mmol/L 04/06/18 13:38 BUN 4 mg/dL (9-20) L 04/06/18 13:38 Creatinine 0.8 mg/dL (0.8-1.5) 04/06/18 13:38 Estimated GFR > 60 ml/min 04/06/18 13:38 BUN/Creatinine Ratio 5 % 04/06/18 13:38 Glucose 85 mg/dL (75-100) 04/06/18 13:38 Lactic Acid 1.90 mmol/L (0.7-2.0) 04/03/18 10:47 Calcium 8.7 mg/dL (8.4-10.2) 04/06/18 13:38 Total Bilirubin 0.30 mg/dL (0.1-1.2) 04/05/18 06:09 Direct Bilirubin < 0.2 mg/dL (0-0.2) 04/03/18 16:37 Indirect Bilirubin 0.2 mg/dL 04/03/18 16:37 AST 9 units/L (5-40) 04/05/18 06:09 ALT 8 units/L (7-56) 04/05/18 06:09 Alkaline Phosphatase 47 units/L (35-129) 04/05/18 06:09 C-Reactive Protein 23.00 mg/dL (0.00-1.30) H 04/05/18 08:09 Total Protein 6.6 g/dL (6.3-8.2) 04/05/18 06:09 Albumin 2.8 g/dL (3.9-5) L 04/05/18 06:09 Albumin/Globulin Ratio 0.7 % 04/05/18 06:09 Urine Color Yellow (Yellow) 04/03/18 19:50 Urine Turbidity Clear (Clear) 04/03/18 19:50 Urine pH 7.0 (5.0-7.0) 04/03/18 19:50 Ur Specific [place] 1.012 (1.003-1.030) 04/03/18 19:50 Urine Protein <15 mg/dl mg/dL (Negative) 04/03/18 19:50 Urine Glucose (UA) Neg mg/dL (Negative) 04/03/18 19:50 Urine Ketones Tr mg/dL (Negative) 04/03/18 19:50 Urine Blood Neg (Negative) 04/03/18 19:50 Urine Nitrite Neg (Negative) 04/03/18 19:50 Urine Bilirubin Neg (Negative) 04/03/18 19:50 Urine Urobilinogen < 2.0 mg/dL (<2.0) 04/03/18 19:50 Ur Leukocyte Esterase Neg (Negative) 04/03/18 19:50 Urine WBC (Auto) 2.0 /HPF (0.0-6.0) 04/03/18 19:50 Urine RBC (Auto) 5.0 /HPF (0.0-6.0) 04/03/18 19:50 Urine Bacteria (Auto) 1+ /HPF (Negative) 04/03/18 19:50 Urine Mucus Few /HPF 04/03/18 19:50 Hep Bs Antigen Non-reactive (Negative) 04/04/18 15:31 Hep B Core Total Ab Nonreactive (Nonreactive) 04/04/18 15:31 Hep B Core IgM Ab Non-reactive (NonReactive) 04/06/18 16:59 Hepatitis C Antibody Non-reactive (NonReactive) 04/04/18 15:31
[2018-04-07] MEDS: ZOSYN/NS 4.5GM/100ML 4.5 GM/100 ML VIAL IV SCH ×3 (10:56→17:21)
--- NOTE | 2018-04-07 11:35 | Gastroenterology Progress Note ---
Assessment and Plan 1.acute abdominal pain -afebrile -WBC WNL -CRP 23 -hepatitis panel negative -Quantiferon gold results pending -CT scan findings suggestive of Crohn's disease (no evidence of obstruction) -KUB shows mild improvement -s/p colonoscopy yesterday that revealed deformity/stenosis ulceration of the ileocecal valve c/w Crohn's disease and cecal deformity with pseudopolyp ( otherwise normal colon) -bx results pending -small bowel series pending for today -clinically, patient is stable with abd pain improved, no N/V, and no signs of bleeding -start on IV steroids 40mg Q6hr -okay to advance diet to GI soft after small bowel series completed -continue supportive care -will follow Subjective Date of service: 04/07/18 Principal diagnosis: IBD Interval history: Patient w/o acute distress. Denies abd pain or N/V. States he is hungry and wants to eat. Objective - Constitutional Vitals: Temp Pulse Resp BP Pulse Ox 98.1 F 55 L 18 107/65 100 04/07/18 05:20 04/07/18 05:20 04/07/18 05:20 04/07/18 05:20 04/07/18 05:20 General appearance: no acute distress - Respiratory Respiratory: bilateral: CTA - Cardiovascular Rhythm: regular Heart Sounds: Present: S1 & S2 - Gastrointestinal General gastrointestinal: Present: soft, non-tender, non-distended, normal bowel sounds - Neurologic Neurological: alert and oriented x3 - Labs CBC & Chem 7: 04/05/18 06:09 04/06/18 13:38 Labs: Laboratory Results - last 24 hr 04/04/18 04/06/18 04/06/18 15:31 13:38 16:59 Sodium 142 Potassium 3.2 L Chloride 103.4 Carbon Dioxide 23 Anion Gap 19 BUN 4 L Creatinine 0.8 Estimated GFR > 60 BUN/Creatinine Ratio 5 Glucose 85 Calcium 8.7 Hep B Core Total Ab Nonreactive Hep B Core IgM Ab Non-reactive
[2018-04-07] MEDS: SODIUM CHLORIDE FLUSH SYRINGE 10 ML IV SCH ×2 (13:34→21:01)
[2018-04-07] MEDS: SOLU-Medrol IV SCH ×3 (14:39→21:00)
[2018-04-07] MEDS: D5NS 1,000 ML IV SCH (18:06)
[2018-04-08] MEDS: ZOSYN/NS 4.5GM/100ML 4.5 GM/100 ML VIAL IV SCH ×3 (00:50→16:08)
[2018-04-08] MEDS: SOLU-Medrol IV SCH ×3 (06:20→22:29)
[2018-04-08 07:25] LABS: BUN/Creatinine Ratio 6; Blood Urea Nitrogen 4 mg/dL (9-20); Hemolysis Index 1
--- NOTE | 2018-04-08 08:30 | Fluoroscopy Report ---
FLUOROSCOPY SMALL BOWEL SERIES History: Abdominal pain, suspected Crohn's disease. Findings: Correlation is made with the CTs of the abdomen and pelvis dated 03/29/18 and 04/03/18. The order tracer film of the abdomen demonstrates a few borderline loops of small bowel in the upper abdomen. Serial radiographs were obtained. Transit time of the oral contrast through the small bowel loops is within normal limits at 60 minutes. There are a few borderline dilated loops of small bowel which appear to be within the jejunum or proximal ileum but they do not appear to be obstructed. 9 fluoroscopic spot were captured. 3 or possibly 4 focal areas of mild stenosis and mucosal irregularity are identified in the distal ileum. The most proximal lesion measures approximately 5-10 cm in length. The remaining lesions measure only a few centimeters in length. No fistulous tract or abscess is identified. No cecal filling defect. The base of the appendix is unremarkable. Impression: Findings suggestive of Crohn's disease as outlined above. Transit time of the oral contrast was within normal limits suggesting no obstructive process at this time.
[2018-04-08] MEDS: SODIUM CHLORIDE FLUSH SYRINGE 10 ML IV SCH ×2 (10:08→22:29)
--- NOTE | 2018-04-08 11:15 | Gastroenterology Progress Note ---
Assessment and Plan 1.acute abdominal pain -afebrile -WBC WNL -CRP 23 -hepatitis panel negative -Quantiferon gold negative -CT scan findings suggestive of Crohn's disease (no evidence of obstruction) -KUB shows mild improvement -small bowel series- findings c/w Crohn's but no evidence of obstruction -s/p colonoscopy that revealed deformity/stenosis ulceration of the ileocecal valve c/w Crohn's disease and cecal deformity with pseudopolyp (otherwise normal colon) -bx results pending -clinically, patient is feeling better with abd pain improved, no N/V, and no signs of bleeding -continue IV steroids today -okay to start on low residue diet -if tolerates diet today, hopefully can transition steroids to PO tomorrow and d /c if stable -continue supportive care -will follow Subjective Date of service: 04/08/18 Principal diagnosis: IBD Interval history: No acute distress or events overnight. Denies abd pain, N/V, or signs of bleeding. Objective - Constitutional Vitals: Temp Pulse Resp BP Pulse Ox 98.5 F 52 L 20 129/69 99 04/08/18 06:40 04/08/18 06:40 04/08/18 07:57 04/08/18 06:40 04/08/18 06:40 General appearance: no acute distress - Respiratory Respiratory: bilateral: CTA - Cardiovascular Rhythm: regular Heart Sounds: Present: S1 & S2 - Gastrointestinal General gastrointestinal: Present: soft, non-tender, non-distended, normal bowel sounds - Neurologic Neurological: alert and oriented x3 - Labs CBC & Chem 7: 04/05/18 06:09 04/08/18 05:16 Labs: Laboratory Results - last 24 hr 04/05/18 04/08/18 06:15 05:16 Sodium 142 Potassium 3.8 Chloride 104.0 Carbon Dioxide 25 Anion Gap 17 BUN 4 L Creatinine 0.7 L Estimated GFR > 60 BUN/Creatinine Ratio 6 Glucose 122 H Calcium 9.0 TB (QFT) Gold In Tube Negative TB Test (QFT) Nil 0.02 TB Test Mitogen - Nil 2.00 TB Test Antigen - Nil 0.08
[2018-04-08] MEDS: D5NS 1,000 ML IV SCH (13:56)
--- NOTE | 2018-04-08 14:01 | Progress Note ---
Assessment and Plan Assessment and plan: The patient is a 28-year-old male who just discharged 04/04/18 with abx for enteritis and outpt GI f/u presenting with a chief complaint of abdominal pain. He presents with abdominal pain, nausea, vomiting and subjective fever. Abdominal pain, likely Crohns as per colonoscopy Peritoneal Irritation-Chronic Chronic Diarrhea with intermittent Nausea and vomiting due to enteritis Sepsis, due to above Hypokalemia, due to GI loss PLAN - Continue supportive care replete electrolytes, IV fluid, keep NPO except ice - Cont levaquin and flagyl IV -ID following - GI and Surgical input noted - Colonocscopy 04/06 picture resembles Crohn's - Quantiferon Gold neg -Replace electrolytes - DVT Px with SCD History Interval history: Less abdominal pain, No more Fever Colonoscopy done 04/06 Hospitalist Physical - Physical exam Narrative exam: GEN:Not in acute distress, lying in bed HEENT: Normocephalic, atraumatic, Neck: supple, No JVD Lungs: Clear to auscultaion bilaterally, no crackles Heart:S1 and S2 reg, no murmurs, rubs or gallop Abd:soft, tender lower abd, non distended, Normal bowel sounds Ext: No edema, clubbing or cyanosis Neuro: Awake, alert, oriented X 3, Moves all extremities - Constitutional Vitals: Temp Pulse Resp BP Pulse Ox 97.6 F 68 16 118/74 100 04/08/18 12:49 04/08/18 12:49 04/08/18 12:49 04/08/18 12:49 04/08/18 12:49 Results - Labs CBC & Chem 7: 04/05/18 06:09 04/08/18 05:16 Labs: Laboratory Last Values WBC 4.6 K/mm3 (4.5-11.0) 04/05/18 06:09 RBC 4.03 M/mm3 (3.65-5.03) 04/05/18 06:09 Hgb 11.7 gm/dl (11.8-15.2) L 04/05/18 06:09 Hct 35.6 % (35.5-45.6) 04/05/18 06:09 MCV 88 fl (84-94) 04/05/18 06:09 MCH 29 pg (28-32) 04/05/18 06:09 MCHC 33 % (32-34) 04/05/18 06:09 RDW 13.1 % (13.2-15.2) L 04/05/18 06:09 Plt Count 417 K/mm3 (140-440) 04/05/18 06:09 Lymph % (Auto) 5.7 % (13.4-35.0) L 04/04/18 05:50 [place] % (Auto) 12.7 % (0.0-7.3) H 04/04/18 05:50 Eos % (Auto) 0.1 % (0.0-4.3) 04/04/18 05:50 Baso % (Auto) 0.1 % (0.0-1.8) 04/04/18 05:50 Lymph # 0.5 K/mm3 (1.2-5.4) L 04/04/18 05:50 [place] # 1.2 K/mm3 (0.0-0.8) H 04/04/18 05:50 Eos # 0.0 K/mm3 (0.0-0.4) 04/04/18 05:50 Baso # 0.0 K/mm3 (0.0-0.1) 04/04/18 05:50 Add Manual Diff Complete 04/02/18 22:02 Total Counted 100 04/02/18 22:02 Seg Neutrophils % 81.4 % (40.0-70.0) H 04/04/18 05:50 Seg Neuts % (Manual) 94.0 % (40.0-70.0) H 04/02/18 22:02 Band Neutrophils % 0 % 04/02/18 22:02 Lymphocytes % (Manual) 5.0 % (13.4-35.0) L 04/02/18 22:02 Reactive Lymphs % (Man) 0 % 04/02/18 22:02 Monocytes % (Manual) 0 % (0.0-7.3) 04/02/18 22:02 Eosinophils % (Manual) 1.0 % (0.0-4.3) 04/02/18 22:02 Basophils % (Manual) 0 % (0.0-1.8) 04/02/18 22:02 Metamyelocytes % 0 % 04/02/18 22:02 Myelocytes % 0 % 04/02/18 22:02 Promyelocytes % 0 % 04/02/18 22:02 Blast Cells % 0 % 04/02/18 22:02 Nucleated RBC % Not Reportable 04/02/18 22:02 Seg Neutrophils # 7.9 K/mm3 (1.8-7.7) H 04/04/18 05:50 Seg Neutrophils # Man 10.7 K/mm3 (1.8-7.7) H 04/02/18 22:02 Band Neutrophils # 0.0 K/mm3 04/02/18 22:02 Lymphocytes # (Manual) 0.6 K/mm3 (1.2-5.4) L 04/02/18 22:02 Abs React Lymphs (Man) 0.0 K/mm3 04/02/18 22:02 Monocytes # (Manual) 0.0 K/mm3 (0.0-0.8) 04/02/18 22:02 Eosinophils # (Manual) 0.1 K/mm3 (0.0-0.4) 04/02/18 22:02 Basophils # (Manual) 0.0 K/mm3 (0.0-0.1) 04/02/18 22:02 Metamyelocytes # 0.0 K/mm3 04/02/18 22:02 Myelocytes # 0.0 K/mm3 04/02/18 22:02 Promyelocytes # 0.0 K/mm3 04/02/18 22:02 Blast Cells # 0.0 K/mm3 04/02/18 22:02 WBC Morphology Not Reportable 04/02/18 22:02 Hypersegmented Neuts Not Reportable 04/02/18 22:02 Hyposegmented Neuts Not Reportable 04/02/18 22:02 Hypogranular Neuts Not Reportable 04/02/18 22:02 Smudge Cells Not Reportable 04/02/18 22:02 Toxic Granulation Not Reportable 04/02/18 22:02 Toxic Vacuolation Not Reportable 04/02/18 22:02 Dohle Bodies Not Reportable 04/02/18 22:02 Pelger-Huet Anomaly Not Reportable 04/02/18 22:02 Wilver Rods Not Reportable 04/02/18 22:02 Platelet Estimate Consistent w auto 04/02/18 22:02 Clumped Platelets Not Reportable 04/02/18 22:02 Plt Clumps, EDTA Not Reportable 04/02/18 22:02 Large Platelets 1+ 04/02/18 22:02 Giant Platelets Not Reportable 04/02/18 22:02 Platelet Satelliting Not Reportable 04/02/18 22:02 Plt Morphology Comment Not Reportable 04/02/18 22:02 RBC Morphology Normal 04/02/18 22:02 Dimorphic RBCs Not Reportable 04/02/18 22:02 Polychromasia Not Reportable 04/02/18 22:02 Hypochromasia Not Reportable 04/02/18 22:02 Poikilocytosis Not Reportable 04/02/18 22:02 Anisocytosis Not Reportable 04/02/18 22:02 Microcytosis Not Reportable 04/02/18 22:02 Macrocytosis Not Reportable 04/02/18 22:02 Spherocytes Not Reportable 04/02/18 22:02 Pappenheimer Bodies Not Reportable 04/02/18 22:02 Sickle Cells Not Reportable 04/02/18 22:02 Target Cells Not Reportable 04/02/18 22:02 Tear Drop Cells Not Reportable 04/02/18 22:02 Ovalocytes Not Reportable 04/02/18 22:02 Helmet Cells Not Reportable 04/02/18 22:02 [place] Bodies Not Reportable 04/02/18 22:02 [place] Rings Not Reportable 04/02/18 22:02 [place] Cells Not Reportable 04/02/18 22:02 Bite Cells Not Reportable 04/02/18 22:02 Crenated Cell Not Reportable 04/02/18 22:02 Elliptocytes Not Reportable 04/02/18 22:02 Acanthocytes (Spur) Not Reportable 04/02/18 22:02 Rouleaux Not Reportable 04/02/18 22:02 Hemoglobin C Crystals Not Reportable 04/02/18 22:02 Schistocytes Not Reportable 04/02/18 22:02 Malaria parasites Not Reportable 04/02/18 22:02 Karri Bodies Not Reportable 04/02/18 22:02 Hem Pathologist Commnt No 04/02/18 22:02 PT 16.4 Sec. (12.2-14.9) H 04/06/18 06:14 INR 1.25 (0.87-1.13) H 04/06/18 06:14 Sodium 142 mmol/L (137-145) 04/08/18 05:16 Potassium 3.8 mmol/L (3.6-5.0) 04/08/18 05:16 Chloride 104.0 mmol/L (98-107) 04/08/18 05:16 Carbon Dioxide 25 mmol/L (22-30) 04/08/18 05:16 Anion Gap 17 mmol/L 04/08/18 05:16 BUN 4 mg/dL (9-20) L 04/08/18 05:16 Creatinine 0.7 mg/dL (0.8-1.5) L 04/08/18 05:16 Estimated GFR > 60 ml/min 04/08/18 05:16 BUN/Creatinine Ratio 6 % 04/08/18 05:16 Glucose 122 mg/dL (75-100) H 04/08/18 05:16 Lactic Acid 1.90 mmol/L (0.7-2.0) 04/03/18 10:47 Calcium 9.0 mg/dL (8.4-10.2) 04/08/18 05:16 Total Bilirubin 0.30 mg/dL (0.1-1.2) 04/05/18 06:09 Direct Bilirubin < 0.2 mg/dL (0-0.2) 04/03/18 16:37 Indirect Bilirubin 0.2 mg/dL 04/03/18 16:37 AST 9 units/L (5-40) 04/05/18 06:09 ALT 8 units/L (7-56) 04/05/18 06:09 Alkaline Phosphatase 47 units/L (35-129) 04/05/18 06:09 C-Reactive Protein 23.00 mg/dL (0.00-1.30) H 04/05/18 08:09 Total Protein 6.6 g/dL (6.3-8.2) 04/05/18 06:09 Albumin 2.8 g/dL (3.9-5) L 04/05/18 06:09 Albumin/Globulin Ratio 0.7 % 04/05/18 06:09 Urine Color Yellow (Yellow) 04/03/18 19:50 Urine Turbidity Clear (Clear) 04/03/18 19:50 Urine pH 7.0 (5.0-7.0) 04/03/18 19:50 Ur Specific [place] 1.012 (1.003-1.030) 04/03/18 19:50 Urine Protein <15 mg/dl mg/dL (Negative) 04/03/18 19:50 Urine Glucose (UA) Neg mg/dL (Negative) 04/03/18 19:50 Urine Ketones Tr mg/dL (Negative) 04/03/18 19:50 Urine Blood Neg (Negative) 04/03/18 19:50 Urine Nitrite Neg (Negative) 04/03/18 19:50 Urine Bilirubin Neg (Negative) 04/03/18 19:50 Urine Urobilinogen < 2.0 mg/dL (<2.0) 04/03/18 19:50 Ur Leukocyte Esterase Neg (Negative) 04/03/18 19:50 Urine WBC (Auto) 2.0 /HPF (0.0-6.0) 04/03/18 19:50 Urine RBC (Auto) 5.0 /HPF (0.0-6.0) 04/03/18 19:50 Urine Bacteria (Auto) 1+ /HPF (Negative) 04/03/18 19:50 Urine Mucus Few /HPF 04/03/18 19:50 Hepatitis A Ab Total See scanned result 04/04/18 15:31 Hep Bs Antigen Non-reactive (Negative) 04/04/18 15:31 Hep B Core Total Ab Nonreactive (Nonreactive) 04/04/18 15:31 Hep B Core IgM Ab Non-reactive (NonReactive) 04/06/18 16:59 Hepatitis C Antibody Non-reactive (NonReactive) 04/04/18 15:31 TB (QFT) Gold In Tube Negative (Negative) 04/05/18 06:15 TB Test (QFT) Nil 0.02 IU/mL 04/05/18 06:15 TB Test Mitogen - Nil 2.00 IU/mL 04/05/18 06:15 TB Test Antigen - Nil 0.08 IU/mL 04/05/18 06:15
[2018-04-09] MEDS: D5NS 1,000 ML IV SCH ×2 (00:17→08:54)
[2018-04-09] MEDS: ZOSYN/NS 4.5GM/100ML 4.5 GM/100 ML VIAL IV SCH ×2 (00:17→08:40)
[2018-04-09 06:38] LABS: BUN/Creatinine Ratio 8; Blood Urea Nitrogen 6 mg/dL (9-20); Calcium 9.1 mg/dL (8.4-10.2); Hemolysis Index 6
[2018-04-09 06:52] VITALS: BP 112/66
--- NOTE | 2018-04-09 08:14 | Progress Note ---
Assessment and Plan Assessment: 1) Sepsis: resolved. Etiology Crohn's Disease.. 2) Inflammatory enterocolitis ? crohn's, less likely infectious -C diff on 03/30 negative. -CRP 23.30 -C4 low at 10 -C3 normal -Stool leukocytes with few WBCs. -Stool cx neg -03/30 blood cx neg -CT scan showed significant inflammatory change in the right lower quadrant with thickening of the wall of the terminal ileum, cecum, and ascending colon along with dilated appendix and fluid filled colon. -discharged on levaquin 500 mg po qday plus flagyl 500 mg po q8h total 7 days -Repeat CT scan findings suggestive of Crohn's disease (no evidence of obstruction) -Repeat CT -04/06 - small bowel and colon distended- findings may reflect paralytic ileus +/- enteritis. Extensive mucal thickening in terminal, ileum and cecum - highly suspicious for inflammatory Bowel Disease -Colonoscopy - 04/06 -" Deformity, stenosis ulceration of the ileocecal valve consistent with Crohn's disease. Cecal deformity with pseudopolyp formation". Ordered - Biopsies, Small bowel series. Can begin steroids after results of Quantiferon gold assay Hep B core Ab results. - quantiferon TB gold - negative, Hep B core and AB negative. Plan: -d/c Augmentin per GI due to no current clinical evidence of infection and risk of developing C-diff -Noted quantiferon and HBV serology negative -no need for ID f/u -ESCOBAR pending Will sign off [facility] M: [phone] O:[phone] Subjective Date of service: 04/09/18 Principal diagnosis: IBD Interval history: Patient standing up at the sink. He stated that he is doing much better today and is anxious to go home. Microbiology: Blood cultures: 03/30 ngtd Current Antimicrobials: Zosyn - 04/06 Previous Antimicrobiaals: Levaquin - 04/03-04/05 Flagyl - 04/03-04/05 - (Unable to tolerate) Objective - Exam Narrative Exam: General appearance: Alert in NAD, conversant Eyes: anicteric sclerae, moist conjunctivae; no lid-lag; PERRLA HENT: Atraumatic; oropharynx clear with moist mucous membranes and no mucosal ulcerations/no oral thrush; normal hard and soft palate. Normal external ears. Neck: Trachea midline; supple, no thyromegaly or lymphadenopathy Lungs: CTA, with normal respiratory effort and no intercostal retractions CV: RRR, no murmurs Abdomen: Soft, mild diffuse tenderness Extremities: No peripheral edema or extremity lymphadenopathy Skin: Normal temperature, turgor and texture; no rash, ulcers or subcutaneous nodules Psych: Appropriate affect, alert and oriented to person, place and time. Neuro: alert and oriented x 3. Moving all extermities Lines: No CVL / PICC - Constitutional Vitals: Vital Signs Temp Pulse Resp BP Pulse Ox 98.5 F 51 L 18 112/66 98 04/09/18 06:03 04/09/18 06:03 04/09/18 06:03 04/09/18 06:03 04/09/18 06:03 Temperature -Last 24 Hours Temperature 98.5 F Temperature 98.6 F Temperature 98.3 F Temperature 97.6 F Temperature 97.6 F - Labs CBC & Chem 7: 04/05/18 06:09 04/09/18 05:05 Labs: Abnormal lab results 04/09/18 Range/Units 05:05 BUN 6 L (9-20) mg/dL Glucose 117 H (75-100) mg/dL
[2018-04-09] MEDS: SOLU-Medrol IV SCH (08:50)
[2018-04-09] MEDS: SODIUM CHLORIDE FLUSH SYRINGE 10 ML IV SCH (08:54)
--- NOTE | 2018-04-09 09:29 | Gastroenterology Progress Note ---
Assessment and Plan 1.acute abdominal pain -afebrile -WBC WNL -CRP 23 -hepatitis panel negative -Quantiferon gold negative -CT scan findings suggestive of Crohn's disease (no evidence of obstruction) -KUB shows mild improvement -small bowel series- findings c/w Crohn's but no evidence of obstruction -s/p colonoscopy that revealed deformity/stenosis ulceration of the ileocecal valve c/w Crohn's disease and cecal deformity with pseudopolyp (otherwise normal colon) -bx results pending -clinically, patient is feeling better with abd pain and N/V resolved. Tolerating diet. No signs of bleeding. -transition steroids to PO (40mg daily) -d/c zosyn and recommend patient does not go home on augmentin due to no current clinical evidence of infection and risk of developing C-diff (I discussed this with ID and they are come with discontinuing medications) -continue supportive care -patient is okay to be d/c per GI standpoint on prednisone with outpatient clinic follow in 2-3 weeks (office card and information given to patient) -will sign off, please call if needed Subjective Date of service: 04/09/18 Principal diagnosis: IBD Interval history: Patient sitting on the side of the bed this am eating breakfast w/o distress and family at bedside. Tolerating diet w/o abd pain or N/V. No signs of bleeding. Objective - Constitutional Vitals: Temp Pulse Resp BP Pulse Ox 98.5 F 51 L 18 112/66 98 04/09/18 06:03 04/09/18 06:03 04/09/18 06:03 04/09/18 06:03 04/09/18 06:03 General appearance: no acute distress - Respiratory Respiratory: bilateral: CTA - Cardiovascular Rhythm: regular Heart Sounds: Present: S1 & S2 - Gastrointestinal General gastrointestinal: Present: soft, non-tender, non-distended, normal bowel sounds - Neurologic Neurological: alert and oriented x3 - Labs CBC & Chem 7: 04/05/18 06:09 04/09/18 05:05 Labs: Laboratory Results - last 24 hr 04/04/18 04/06/18 04/09/18 15:31 16:59 05:05 Sodium 141 Potassium 4.4 Chloride 104.3 Carbon Dioxide 26 Anion Gap 15 BUN 6 L Creatinine 0.8 Estimated GFR > 60 BUN/Creatinine Ratio 8 Glucose 117 H Calcium 9.1 Hepatitis A Ab Total See scanned result Hep B Core Total Ab Nonreactive
[2018-04-09] MEDS ORDERED: DELTASONE PO SCH (10:00)
--- NOTE | 2018-04-09 11:02 | Discharge Summary ---
Providers - Providers Date of Admission: 04/03/18 08:30 Date of discharge: 04/09/18 Attending physician: YANETH HUNT 04/03/18 15:33 Consult to Physician [CONS] Routine Comment: Consulting Provider: ALEX FRANCOIS Physician Instructions: Reason For Exam: ileus 04/03/18 15:52 Consult to Physician [CONS] Routine Comment: Consulting Provider: DIANDRA CHÁVEZ Physician Instructions: Reason For Exam: IBD 04/04/18 09:37 Consult to Physician [CONS] Routine Comment: Consulting Provider: CHARAN ROSAS Physician Instructions: Reason For Exam: IBS Primary care physician: MANAGER [employer] Hospitalization Condition: Fair Disposition: DC-01 TO HOME OR SELFCARE Exam - Constitutional Vitals: Temp Pulse Resp BP Pulse Ox 98.5 F 51 L 18 112/66 98 04/09/18 06:03 04/09/18 06:03 04/09/18 06:03 04/09/18 06:03 04/09/18 06:03 Plan Diet: other (Low residue diet) Additional Instructions: 1.Follow up with PCP in 1 week. 2.Follow up with Dr. David on 04/22. 3.Follow up with Dr. Chávez in 2 weeks. 4.Low residue diet Follow up with: PRIMARY CARE, [Primary Care Provider] - 3-5 Days Prescriptions: predniSONE [Deltasone] 40 mg PO QDAY 30 Days tablet
== END 2018-04-09 12:49 | disposition home or self-care (01) | DRG 871 ==
LOC: ED 20:36 → 3A 04-03 08:30
PROVIDERS: ADMIT Internal Medicine; ATTEND Internal Medicine
PROC: 0DBC8ZX Excision of Ileocecal Valve, Via Natural or Artificial Opening Endoscopic, Diagnostic (ICD-10-PCS; principal; 2018-04-06)
DX: A41.9 Sepsis, unspecified organism (principal); K35.3 Acute appendicitis with localized peritonitis; K50.90 Crohn's disease, unspecified, without complications; K56.609 Unspecified intestinal obstruction, unspecified as to partial versus complete obstruction; K63.89 Other specified diseases of intestine; K52.89 Other specified noninfective gastroenteritis and colitis; F10.10 Alcohol abuse, uncomplicated; E87.6 Hypokalemia; J45.909 Unspecified asthma, uncomplicated; Z79.899 Other long term (current) drug therapy
CPT/HCPCS: 36415; 74019; 74176; 74250; 80048; 80053; 80074; 81001; 82140; 82164; 85007; 85025; 85027; 85610; 86140; 86705; 86706; 86709; 86803; 88305; 96365; 96375; J1956; J2270; J2405; J2543; J2704; J2920; J3010; J3480; J7030; J7042; Q0162